=== PATIENT | female | born 1940 | race Caucasian/White ===

== ENCOUNTER 2019-01-25 18:22 | Inpatient (IN) | payer OTHER ==
[~2019-01-25] VITALS: Ht 154.9 cm; Wt 97.1 kg
--- NOTE | ~2019-01-25 | HC ---
[facility] [place] [address] CONSULTATION Name: JOYCE MCKEON Room #: 214-P ADM IN M.R.#: [id number] Admission: 01/25/19 ������������������ Attend Phys: Angélica Weiss MD Discharge: ������������������ Date of : 40 Report #: [id number] THIS REPORT FOR: //name// CC: Angélica Burris DATE OF SERVICE: 01/28/2019 HISTORY OF PRESENT ILLNESS: The patient is a 78-year-old white female who had a fall, was unable to get up. She ended up scooting on the floor. She was down for an undetermined period of time, was brought to and noted to have rhabdomyolysis, acute renal insufficiency superimposed on chronic kidney disease and was quite confused. She was transferred to [facility]. She has been followed by Cardiology with noted elevated troponin. She was noted to have a left bundle-branch block. She had the rhabdomyolysis and was given IV fluids with Nephrology involved. She did have initial considerable confusion and was noted to be a poor historian. Clinically, felt to have some delirium with a toxic metabolic encephalopathy that appears to be improving. Creatinine was 3.3 and is now 2.3. I am uncertain what her baseline is. We are seeing her in Rehabilitation Medicine consultation. PAST MEDICAL HISTORY: Includes diabetes mellitus, hypothyroidism, hyperlipidemia, hypertension, exogenous obesity. PAST SURGICAL HISTORY: Includes hysterectomy. ALLERGIES: AMOXICILLIN, UNKNOWN REACTION. MEDICATIONS: Please see the full medication listing. This includes vitamins, herbals, and supplements per report. SOCIAL HISTORY: Lives in a house by herself with some pets. Four steps in with a rail. She did not utilize gait aids except for just recently started using a walker. She notes 3 serious falls since June. She indicates that the main issue after the falls that she is unable to get up. There is a brother who lives in the area as well as a nephew. REVIEW OF SYSTEMS: Did not offer any current complaints of chest pain, shortness of breath or abdominal discomfort. She has some diffuse muscular extremity pain complaints. PHYSICAL EXAMINATION: GENERAL: She is a 78-year-old, overweight, white female, in no obvious distress. She is 5 feet inch, 209 pounds. NEUROLOGIC: Facies are symmetric. She will follow basic [address] [address] CONSULTATION Name: JOYCE MCKEON Room #: [address] [place] [address] IN M.R.#: [id number] Admission: 01/25/19 ������������������ Attend Phys: Angélica Weiss MD Discharge: ������������������ Date of : 40 Report #: [id number] Appears to have decreased insight into her deficits. EXTREMITIES: Functional range of motion of the upper extremity strength is grade 3+ to 4-/5. Lower extremities, no focal calf swelling. Functional range of motion with strength grade 3+/5. She was min assist to mod assist with sit to stand. She has only been able to do some limited standing. Max assist, lower body dressing. ASSESSMENT: A 78-year-old white female with the following problem list: 1. Initial confusion/metabolic encephalopathy, gradually improving. 2. Gait instability with multiple falls. 3. Rhabdomyolysis. 4. Acute renal insufficiency superimposed on chronic kidney disease. 5. Elevated troponin. 6. Cardiomyopathy. 7. Left bundle-branch block. 8. Diabetes mellitus. PLAN: The patient is a candidate for an acute [address] [place] [address] inpatient rehabilitation stay. Can plan on transfer when medically ready. Discussion with the patient and her brother who appears amenable. We will be glad to follow along with you. ��������������������������������������������� ���������������������������������������� By: ��������������������������������������������� 1300 0302 Duarte Salcedo MD /PMT
[2019-01-25 18:15] VITALS: BP 139/66
--- NOTE | 2019-01-25 18:50 | NUR ---
REPORT FROM FRIEDA ROY, IN [place]. PATIENT ARRIVES 1814 BY CART VIA EMS. VSS. SHE REPORTS BUMPY RIDE; NO OTHER COMPLAINTS. WILL REPORT TO ONCOMING RN.
[2019-01-25 19:57] VITALS: BP 154/53
[2019-01-25] MEDS ORDERED: ASPIR 8181 MG PO (22:03)
[2019-01-25] MEDS ORDERED: BENAZEPRIL HCL20 MG PO (22:04)
[2019-01-25] MEDS ORDERED: LIPITOR40 MG PO (22:04)
[2019-01-25] MEDS ORDERED: COREG25 MG PO (22:06)
[2019-01-25] MEDS ORDERED: IRON325 PO (22:06)
[2019-01-25] MEDS ORDERED: LASIX 20 MG TAB20 MG PO (22:07)
[2019-01-25] MEDS ORDERED: HYDRALAZINE 2525 MG PO (22:08)
[2019-01-25] MEDS ORDERED: GABAPENTIN 100100 MG PO (22:08)
[2019-01-25] MEDS ORDERED: ZANTAC 150MG T150 MG PO (22:11)
[2019-01-25] MEDS ORDERED: SYNTHROID112 MC1 PO (22:11)
[2019-01-26 00:16] VITALS: BP 121/53
[2019-01-26] MEDS ORDERED: BACTRIM DS TAB1 EACH PO (02:54)
[2019-01-26] MEDS ORDERED: LANTUS100 UNIT/M SUBQ ×2 (02:54)
[2019-01-26] MEDS ORDERED: PREDNISONE 10 M10 MG PO (02:55)
[2019-01-26 04:13] VITALS: BP 147/57
[2019-01-26 06:18] LABS: CHOLESTEROL 116 mg/dL (<200); HDL CHOLESTEROL 27 mg/dL (>40); LDL CHOLESTEROL 50 mg/dL (<100); TC:HDL 4.3 Ratio (Not establshd); TRIGLYCERIDE 197 mg/dL (<150); VLDL 39 mg/dL (<40)
[2019-01-26 06:19] LABS: SERUM ASSESSMENT Clear
[2019-01-26 06:28] LABS: ALBUMIN 2.7 g/dL (3.4-5.0); CALCIUM 10.6 mg/dL (8.5-10.1); CREATININE 3.3 mg/dL (0.6-1.0); MAGNESIUM 2.3 mg/dL (1.8-2.4); TOTAL BILIRUBIN 0.4 mg/dL (<0.1-1.0); TOTAL PROTEIN 5.3 g/dL (6.4-8.2)
[2019-01-26 07:10] LABS: HEMATOCRIT 29.6 % (37.0-47.0); HEMOGLOBIN 9.9 gm/dL (12.0-15.0); MCH 30.9 pg (26.0-34.0); MCHC 33.5 g/dL (28.0-37.0); MCV 92.2 fL (80.0-100.0); RBC 3.21 mil/uL (4.20-5.00); RDW 14.8 % (10.5-14.5); WBC 11.4 thou/uL (4.0-11.0)
--- NOTE | 2019-01-26 08:23 | NUR ---
RECEIVED PT'S CARE AT 1900; PT. ON BED; RELATIVES AT THE BED SIDE; REQUESTED TO EAT SOMETHING & DRINK; NO ORDERS; DURING ASSESSMENT PT, ALERT TO PERSON; FORGETFUL; POOR HISTORIAN DURING ADMISSION ASSESSMENT; ST. HAVING PAIN OVER LEGS 05/16; REFUSED PRN PAIN MEDICATION; ST. "I DO NOT TAKE PAIN MEDICATIONS"; EMPLOYEE WELFARE MANAGER CALLED TO RECEIVE DIET ORDERS; ORDER RECEIVED; PT. ABLE TO EAT & DRINK; PT. NOT ABLE TO VOID; BLADDER SCANNER; 322 ML; EMPLOYEE WELFARE MANAGER NOTIFIED; ORDERS RECEIVED; CATH PLACE; 350 ML OUT; PT. ABLE TO REST THROUGH THE NIGHT; ASSESSMENT CHARGED; FOLLOWING POC; PASSED ON REPORT TO FRIEDA WATERS.
--- NOTE | 2019-01-26 09:01 | H ---
[facility] [place] [address] HISTORY AND PHYSICAL Name: JOYCE MCKEON Room #: 214-P ADM IN M.R.#: [id number] Admission: 01/25/19 ������������������ Attend Phys: Ubaldo Morales Discharge: ������������������ Date of : 40 Report #: [id number] THIS REPORT FOR: //name// CC: Ubaldo Burris DATE OF SERVICE: 01/25/2019 ATTENDING PHYSICIAN: Ubaldo Morales MD PRIMARY CARE PHYSICIAN: Dr. Kyree Causey. CHIEF COMPLAINT: Acute kidney injury and fall. HISTORY OF PRESENT ILLNESS: The patient is a 78-year-old female who lives at home alone. Apparently, she had a fall yesterday morning around 8:30 and was unable to get back up. She felt very weak and unsteady and was only able to scoot around on the floor until she was able to get help. She was taken to [facility] and presented there complaining of pain in her hips and legs. She does have some chronic neuropathy pain in her legs. She denies losing any consciousness, but did state that she hit the back of her head. She also reports other recent falls. Her medication list shows that she has been on Bactrim for the last 2 days. Family reported that this was for a recent UTI. She has also been on a prednisone taper for unknown reasons. The patient has been confused and her baseline is unknown as her family is not present at this time. She was transferred to [facility] due to elevated creatinine and troponin. She is denying any chest pain, palpitations or shortness of breath. She denies any history of heart disease or having any stents in her heart, but her family members report that she has seen Dr. Mendenhall with Cardiology. The patient is an extremely poor historian and has never been at [facility] in the past. Her previous creatinine is unknown, but she denies any history of chronic kidney disease. Her creatinine at [facility] was 3.14. They were unable to get any IV access as she has not had any IV fluids. She is a diabetic. Although she is unable to state her exact insulin doses, her family members mentioned that they were not sure if she has been taking her medications correctly. PAST MEDICAL HISTORY: Diabetes, hypothyroidism, hyperlipidemia, hypertension, possibly coronary artery disease. PAST SURGICAL HISTORY: Hysterectomy, otherwise unknown. ALLERGIES: AMOXICILLIN, unknown reaction. HOME MEDICATIONS: Bactrim one tab b.i.d. that was just started 2 days ago, iron 325 mg daily, atorvastatin 40 mg at bedtime, hydralazine [address]i.d[address] [place] [id number] HISTORY AND PHYSICAL Name: JOYCE MCKEON Room #: 214-P ADM IN M.R.#: [id number] Admission: 01/25/19 ������������������ Attend Phys: Ubaldo Morales Discharge: ������������������ Date of : 40 Report #: [id number] carvedilol 25 mg p.o. b.i.d., benazepril 20 mg p.o. daily, aspirin 81 mg p.o. daily, gabapentin 100 mg p.o. daily, Lasix 20 mg p.o. daily, ranitidine 150 mg p.o. daily, prednisone taper, Lantus insulin 20 units in the morning and 10 units at night, and levothyroxine 112 mcg daily. SOCIAL HISTORY: The patient lives at home alone. Does have some pets. She denies any tobacco, alcohol or drug use. FAMILY HISTORY: Unobtainable due to altered mental status. PHYSICAL EXAMINATION: GENERAL: The patient is an alert, but confused female, in no acute distress. VITAL SIGNS: Temperature is 36.8, heart rate 70, respirations 18, blood pressure 139/66, oxygen is 99% on room air. HEENT: PERRLA. Sclerae nonicteric. Oral mucosa is pink and dry. NECK: Supple. There is no JVD noted. CARDIAC: Normal S1, S2 with no murmurs, rubs or gallops. RESPIRATORY: Breath sounds are clear bilaterally. No wheezing or rhonchi. She is somewhat diminished in the bases. ABDOMEN: Round and obese. She does have some mild right upper quadrant tenderness and left lower quadrant tenderness. Bowel sounds are positive. VASCULAR: 2+ bilateral lower extremity edema, pedal pulses are 2+. NEUROLOGIC: The patient is alert, but confused. She had trouble stating her date and stated it was 08/08/02, when she is trying to correct herself, she said 10/06/00. She will follow commands. She did have slight tremors of bilateral upper extremities with [id number] testing. She had 4/5 muscle strength in bilateral lower extremities and was barely able to lift her legs up off the bed, but it was difficult to tell if this was related to pain in her knees. She was somewhat sleepy, but did arouse easily and remained alert and attempted to answer questions, although she is a very poor historian. SKIN: She does have some bruising noted on bilateral knees and forearms. There are skin tears in bilateral elbows. LABORATORIES AND DIAGNOSTICS: Blood work from [facility] showed a WBC of 15.8, hemoglobin 11.0, platelets 90. Sodium 136, potassium 3.8, BUN 53, creatinine 3.14, glucose 162. Magnesium 1.6. AST 1245, ALT 147, calcium is 11.7. CPK is 12,975. Troponin is 2.34. BNP is 1250. UA showed large amount of blood. Bilirubin is normal. Chest x-ray showed no acute findings and EKG showed sinus rhythm with some PVCs and a left bundle-branch block, I did not have any old EKGs for comparison. ASSESSMENT AND PLAN: 1. Acute kidney injury. The patient denies any history of chronic kidney disease or ever having to see a consulting senior practice director. We will check a renal ultrasound in the morning and continue with IV fluids, this was possibly due to recent Bactrim use. We will discontinue Bactrim and hold Lasix and ANH inhibitor. [facility] [address] [place] [address] HISTORY AND PHYSICAL Name: JOYCE MCKEON Room #: 214-P ADM IN M.R.#: [id number] Admission: 01/25/19 ������������������ Attend Phys: Ubaldo Morales Discharge: ������������������ Date of : 40 Report #: [id number] Consult Nephrology. She also has a significantly elevated CPK level, which may be affecting the kidneys as well. 2. Rhabdomyolysis, likely due to recent falls. We will continue with IV fluids and repeat CPK in the morning. Hold statin therapy. 3. Non-ST elevation myocardial infarction. The patient is denying any chest pain. EKG shows sinus rhythm with a left bundle-branch block, but it is unclear if this is new or old. We will repeat a troponin in the morning and consult Cardiology, check an echo in the morning. 4. Generalized lower extremity weakness and falls. It is difficult to tell if her weakness is related to her knee pain. No x-rays of the extremities were done. We will have PT and OT evaluate. 5. Diabetes type 2. Blood sugar is stable. Continue Lantus and add sliding scale insulin. Follow Accu-Cheks. Check a hemoglobin A1c as the family is concerned about noncompliance. 6. Hypothyroidism. Check TSH level. Continue Synthroid. 7. Hypomagnesemia. Replace and repeat labs in the morning. 8. Transaminitis. No prior labs for comparison. We will check an abdominal ultrasound in the morning since she is having some abdominal tenderness and check a hepatitis panel. Hold statin therapy. 9. Hypercalcemia, possibly due to dehydration. We will hydrate and repeat labs. If the hypercalcemia persists, we may need to further evaluate for malignancy. 10. Hypertension. Blood pressure is stable. Resume Coreg as at home. Continue with Coreg and hydralazine as at home. We do need to hold Lasix and AHN inhibitor due to elevated creatinine. 11. Left bundle-branch block. We do not know if this is new. Since Cardiology is consulted, we will try to obtain access to prior EKGs. 12. Altered mental status. Baseline mentation is not clear. She did her recent fall and hit her head. She is an extremely poor historian. Since her platelets are on the low side, we will need to check a stat CT of the head to rule out any acute findings. 13. Deep venous thrombosis prophylaxis. Start heparin 5000 units subQ t.i.d. if CT of the head is negative. We will continue to follow the patient closely throughout the hospitalization and make changes based on clinical status. ��������������������������������������������� <ELECTRONICALLY SIGNED> ���������������������������������������� By: ODIN Gallagher ��������������������������������������������� 01/26/1901 0719 0823 ODIN Gallagher /nt
[2019-01-26 09:25] VITALS: BP 153/59
--- NOTE | 2019-01-26 11:42 | NUR ---
ASSUMED CARE AT 0700, SHIFT ASSESSMENT DONE, VSS. MORNING MEDS ADMINISTERED. REPORTED PAIN TO LOWER BACK, PRN PAIN MED GIVEN. HAS BEEN CONSTIPATED, BUT DID NOT WANT PRN MIRALAX, INDICATED THAT SHE HAS DIARRHEA. QUICK IN PLACE, PRODUCING SOME URINE. WILL CONTINUE TO ASSESS AND ASSIST WITH ADLs NEEDED.
[2019-01-26 12:44] VITALS: BP 155/63
[2019-01-26 16:00] VITALS: BP 141/64
--- NOTE | 2019-01-26 16:25 | 2DMMODE ---
[facility] [address] [place] [address] 2 D/M-MODE ECHOCARDIOGRAM Name: JOYCE MCKEON Room #: 214-P ADM IN M.R.#: [id number] ������������� Admission: 01/25/19 ������������� Attend Phys: Ubaldo Cornell Discharge: ��� ������������� ��� Date of : 40 Date of Service: 01/26/19 1625 �� Report #: [id number] �������� ��������������������������������������������[id number] THIS REPORT FOR: //name// APPROVED REPORT Study performed: 01/26/2019 12:16:51 EXAM: Comprehensive 2D, Doppler, and color-flow Echocardiogram Patient Location: In-Patient Room #: 214 Status: routine BSA: 1.94 HR: 58 bpm BP: 153/59 mmHg Other Information Study Quality: Adequate Risk Factors: Cardiac Risk Factors: Diabetes (insulin) Indications Chest Pain 2D Dimensions IVSd: 13.38 (7-11mm) LVOT Diam: 21.02 (18-24mm) LVDd: 60.41 mm PWd: 12.62 (7-11mm) Ascending Ao: 32.61 (22-36mm) LVDs: 47.18 (25-40mm) Left Atrium: 39.97 (27-40mm) Aortic Root: 27.06 mm Volumes Left Atrial Volume (Systole) Single Plane 4CH: 70.33 mL Single Plane 2CH: 120.44 mL Aortic Valve AoV Peak Marcell.: 1.71 m/s AO Peak Gr.: 11.86 mmHg LVOT Max P.84 mmHg LVOT Max V: 0.97 m/s GABE Vmax: 1.98 cm2 Mitral Valve E/A Ratio: 0.5 MV Decel. Time: 239.13 ms [facility] [address] [address] 2 D/M-MODE ECHOCARDIOGRAM Name: JOYCE MCKEON Room #: 214-P [facility] IN [facility].#: [id number] ������������� Admission: 01/25/19 ������������� Attend Phys: Ubaldo Cornell Discharge: ��� ������������� ��� Date of : 40 Date of Service: 01/26/19 1625 �� Report #: [id number] �������� ��������������������������������������������[id number] MV E Max Marcell.: 0.64 m/s MV A Marcell.: 1.27 m/s MV Max Marcell.: 5.92 m/s MV Mean Marcell.: 4.28 m/s MR Radius: 1.12 cm MV PHT: 69.35 ms MR Als. Marcell: 0.68 m/s MR Flow: 535.40 mL/s Pulmonary Valve PV Peak Marcell.: 1.06 m/s PV Peak Gr.: 4.49 mmHg Pulmonary Vein P Vein S: 0.77 m/s P Vein A: 0.30 m/s P Vein D: 0.32 m/s P Vein A Dur.: 183.4 msec P Vein S/D Ratio: 2.41 Tricuspid Valve TR Peak Marcell.: 3.03 m/s TR Peak Gr.: 36.77 mmHg Left Ventricle Left ventricle is mildly dilated. There is mild global hypokinesis of the left ventricle. Mild to moderate concentric left ventricular hypertrophy. Left ventricular systolic function is borderline. LVEF is 40-45%. Grade I - abnormal relaxation pattern. Right Ventricle The right ventricle is normal size. There is normal right ventricular wall thickness. The right ventricular systolic function is normal. Atria Left atrium is mildly dilated. The right atrium size is normal. Aortic Valve Aortic valve is thickened but has adequate excursion. Trace aortic regurgitation. There is no aortic valvular stenosis. Mitral Valve The mitral valve is thickened but opens well. Moderate mitral regurgitation. No evidence of mitral valve stenosis. There is no evidence of mitral valve prolapse. Tricuspid Valve The tricuspid valve is normal in structure. There is no tricuspid [address] [address] 2 D/M-MODE ECHOCARDIOGRAM Name: JOYCE MCKEON Room #: 214-P [facility] IN ..#: [id number] ������������� Admission: 01/25/19 ������������� Attend Phys: Ubaldo Cornell Discharge: ��� ������������� ��� Date of : 40 Date of Service: 01/26/19 1625 �� Report #: [id number] �������� ��������������������������������������������[id number] valve stenosis. Mild tricuspid regurgitation. Pulmonic Valve The pulmonary valve is normal in structure. Trace pulmonic regurgitation. Great Vessels The aortic root is normal in size. IVC is normal in size and collapses >50% with inspiration. Pericardium There is no pericardial effusion. There is no pleural effusion. Critical Notification Critical Value: No <Conclusion> Left ventricle is mildly dilated. LVEF is 40-45%. There is mild global hypokinesis of the left ventricle. Left atrium is mildly dilated. Aortic valve is thickened but has adequate excursion. Trace aortic regurgitation. The mitral valve is thickened but opens well. Moderate mitral regurgitation. The tricuspid valve is normal in structure. Mild tricuspid regurgitation. The pulmonary valve is normal in structure. Trace pulmonic regurgitation. There is no pericardial effusion. ��������������������������������������������� <ELECTRONICALLY SIGNED> ���������������������������������������� By: Hernan Waterman MD ��������������������������������������������� 01/26/19 1625 1625 1625 Hernan Waterman MD /INF
[2019-01-26 20:03] LABS: URINE BILIRUBIN NEGATIVE (Negative); URINE BLOOD 2+ (Negative); URINE CLARITY CLEAR; URINE COLOR YELLOW; URINE GLUCOSE-RANDOM* NEGATIVE (Negative); URINE KETONES NEGATIVE (Negative); URINE LEUKOCYTES-REFLEX TRACE (Negative); URINE NITRITE-REFLEX NEGATIVE (Negative); URINE PROTEIN (DIPSTICK) TRACE (Negative); URINE UROBILINOGEN 0.2 E.U./dl (0.2-1.0)
[2019-01-26 20:06] VITALS: BP 141/58
[2019-01-26 20:11] LABS: BACTERIA-REFLEX 1-9 Few /HPF (None Seen); CASTS None Seen /LPF (None Seen); CRYSTALS None Seen /LPF (None Seen); SQUAMOUS 0-3 Few /LPF (0-3); URINE RBC 0-2 Rare /HPF (0-2); URINE WBC-REFLEX 0-5 Rare /HPF (0-5)
[2019-01-27 01:05] LABS: GLYCOHEMOGLOBIN (HGB A1C) 6.4 % (4.8-5.6)
[2019-01-27 04:40] VITALS: BP 159/74
--- NOTE | 2019-01-27 05:10 | NUR ---
ASSUMED PT CARE AT 1900 WITH NO SIGN OF DISTRESS NOTED. PT IS ALERT BUT CONFUSED, PT IS SITTING ON THE CHAIR. NO FAMILY AT BEDSIDE. PT IS STABLE. ASSESSMENT COMPLETED AND CHARTED. SCHEDULED MEDS ADMINISTERED TO PT, PT IS TRANSFERRED BACK FROM CHAIR TO BED. FALL PRECAUTIONS ARE IN PLACE. PT IS STABLE, DENIES ANY NEEDS AT THIS TIME, PAIN MED ADMINISTERED REQUESTED BY PATIENT
[2019-01-27 06:26] LABS: HEMATOCRIT 26.5 % (37.0-47.0); HEMOGLOBIN 8.9 gm/dL (12.0-15.0); MCH 31.1 pg (26.0-34.0); MCHC 33.6 g/dL (28.0-37.0); MCV 92.8 fL (80.0-100.0); RBC 2.85 mil/uL (4.20-5.00); RDW 15.1 % (10.5-14.5); WBC 8.1 thou/uL (4.0-11.0)
[2019-01-27 06:41] LABS: ALBUMIN 2.6 g/dL (3.4-5.0); CALCIUM 9.2 mg/dL (8.5-10.1); CREATININE 2.7 mg/dL (0.6-1.0); POTASSIUM 3.9 mmol/L (3.5-5.1); TOTAL BILIRUBIN 0.4 mg/dL (<0.1-1.0); TOTAL PROTEIN 5.2 g/dL (6.4-8.2)
[2019-01-27 08:34] VITALS: BP 179/71
[2019-01-27 09:05] LABS: HAV IgM AB (ANTI-HAV IgM) Negative (Negative); HEPATITIS B SURFACE AG Negative (Negative); HEPATITIS C VIRUS AB <0.1 (0.0-0.9)
--- NOTE | 2019-01-27 14:17 | NUR ---
ASSUMED CARE AT 0700, SHIFT ASSESSMENT DONE, MEDS GIVEN, BP ELEVATED THIS AM, DR AWARE, IV FLUID RATE HAS BEEN REDUCED. QUICK IN PLACE, PRODUICNG LIGHT YELLOW COLORED URINE, AMPLE IN AMOUNT. REPORTED RIGHT HIP PAIN, PRN PAIN MED GIVEN, X-RAY OF HIP WAS NEGATIVE FOR FRACTURE. SITTING UP IN THE CHAIR THIS AFTERNOON, ACHS, COEVERGE PER eMAR. WILL CONTINUE TO ASSESS AND ASSIST WITH ADLs NEEDED.
[2019-01-27 16:00] VITALS: BP 177/75
[2019-01-27 18:01] VITALS: BP 178/74
--- NOTE | 2019-01-27 18:27 | NUR ---
BP ELEVATED THROUGHOUT THE DAY, CARVEDILOL GIVEN AT 1645, BP RECHECKED AT 1800, STILL AT 178/81, DR JOHNSON INFORMED, ORDER RECEIVED FOR NORVASC 10 MG AND ADMINISTERED.
[2019-01-27 20:05] VITALS: BP 165/64
[2019-01-28 02:59] LABS: HEMATOCRIT 24.6 % (37.0-47.0); HEMOGLOBIN 8.3 gm/dL (12.0-15.0); MCH 31.5 pg (26.0-34.0); MCHC 33.9 g/dL (28.0-37.0); MCV 92.7 fL (80.0-100.0); RBC 2.65 mil/uL (4.20-5.00); RDW 14.9 % (10.5-14.5)
[2019-01-28 03:15] LABS: ALBUMIN 2.5 g/dL (3.4-5.0); CALCIUM 8.8 mg/dL (8.5-10.1); CREATININE 2.3 mg/dL (0.6-1.0); POTASSIUM 4.5 mmol/L (3.5-5.1); TOTAL BILIRUBIN 0.4 mg/dL (<0.1-1.0); TOTAL PROTEIN 4.9 g/dL (6.4-8.2)
[2019-01-28 04:09] VITALS: BP 169/69
--- NOTE | 2019-01-28 04:54 | NUR ---
ASSUMED PT CARE AT 1900. PT IS ALERT BUT CONFUSED. NO SIGN OF DISTRESS NOTED IN PT. ASSESSMENT CHARTED AND COMPLETED. VITAL SIGNS STABLE. SCHEDULED MEDS ADMINISTERED TO PT. PT IS LAYING IN BED COMFORTABLY. QUICK IS STILL INSERTED. DENIES ANY FURTHER NEEDS AT THIS TIME. CONTINUE TO MONITOR PATIENT.
[2019-01-28 07:44] VITALS: BP 173/66
--- NOTE | 2019-01-28 08:04 | NUR ---
assumed care of pt at 2330, pt sleeping no c/o this am, pt transfer up to chair and iv noticed leaking fluids put on hold, sbp remains elevated, sb per monitor, report given to next shift to con't with pts ppoc.
--- NOTE | 2019-01-28 09:04 | EKG ---
[address] [address] ELECTROCARDIOGRAM REPORT Name: EDEN MCKEONNDA Room #: 214-P ADM IN M.R.#: [id number] ������������������ Admission: 01/25/19 ������������������ Attend Phys: Angélica Weiss MD Discharge: ������������������ Date of : 40 Report #: [id number] ����������������������������������������������������������������� [id number] THIS REPORT FOR: //name// [facility] Test Date: 2019-01-26 Test Time: 07:17:30 Pat Name: JOYCE MCKEON Department: Room: 214 P Gender: F Financial Service Rep: KARL : 1940 Requested By: Lindy Valenzuela Order Number: [id number] MD: Anirudh Nash Measurements Intervals Cammal Rate: 57 P: 37 RI: 178 QRS: -13 QRSD: 146 T: 176 QT: 465 QTc: 453 Interpretive Statements Sinus rhythm with occasional PVC's Left bundle branch block No previous ECG available for comparison Electronically Signed On 01-28-2019 9:04:35 CDT by Anirudh Nash [email or web address] ��������������������������������������������� <ELECTRONICALLY SIGNED> ���������������������������������������� By: Anirudh Nash MD, [facility] ��������������������������������������������� [birth year]04 6 6 Anirudh Nash MD, [facility] /EPI
[2019-01-28 11:13] LABS: % SATURATION 51 % (20-39); IRON 77 ug/dL (50-170); TIBC 152 ug/dL (250-450)
[2019-01-28 11:40] VITALS: BP 99/57
--- NOTE | 2019-01-28 14:52 | NUR ---
ASSESSMENT CHARTED. PT ALERT AND ORIENTED. DENIED HAVING PAIN OR DISCOMFORT. SB ON TELE. CARDIOLOGY AWARE. SCHEDULED BP MED GIVEN ORDERED. UP IN THE CHAIR THIS SHIFT. NO CONCERNS AT THIS TIME. WILL CONTINUE TO MONITOR.
--- NOTE | 2019-01-28 15:02 | NUR ---
PATIENT SEEN BY DR. STEVENS THIS DATE. [facility] IS A GOOD CANDIDATE FOR ACUTE REHAB AND MEETS CRITERIA AT THIS TIME. SEGMENTAL PAVING SUPERVISOR INFORMED. WILL CONTINUE TO FOLLOW.
[2019-01-28 15:46] VITALS: BP 143/76
--- NOTE | 2019-01-28 15:51 | NUR ---
met with patient who lives in independent home in [place]. All needs on one level. Patient reports fall at home last week and since that time she is using a roller walker at home. CM to give her resources for [facility]. Patient evaled for 5N possible candidate. She plans to consider if short stay. She may also consider care. She reports she did better with therapy this afternoon. Her brother lives nearby in [place]. She plans to move to [place] to be with her brother and live in his home. She reports reluctant for rehab as she has standard poodle and 4 cats at home. [email or web address] following.
[2019-01-28 19:59] VITALS: BP 140/50
[2019-01-29 04:39] VITALS: BP 156/54
[2019-01-29 05:09] LABS: HEMATOCRIT 25.3 % (37.0-47.0); HEMOGLOBIN 8.5 gm/dL (12.0-15.0); MCHC 33.5 g/dL (28.0-37.0); MCV 92.6 fL (80.0-100.0); RBC 2.74 mil/uL (4.20-5.00); RDW 14.9 % (10.5-14.5); WBC 6.8 thou/uL (4.0-11.0)
--- NOTE | 2019-01-29 05:31 | NUR ---
ASSUMED PT CARE AT 1900 WITH NO SIGN OF DISTRESS NOTED IN PT. PT IS STABLE. ASSESSMENT COMPLETED AND CHARTED. SCHEDULED MEDS ADMINISTERED. PT TOLERATED PO INTAKE. VITAL SIGNS STABLE, DENIES ANY NEED AT THIS TIME.
[2019-01-29 05:33] LABS: ALBUMIN 2.7 g/dL (3.4-5.0); CALCIUM 9.2 mg/dL (8.5-10.1); PHOSPHORUS 1.7 mg/dL (2.5-4.9); POTASSIUM 4.7 mmol/L (3.5-5.1); TROPONIN-I 0.28 ng/mL (<0.06)
[2019-01-29 07:36] VITALS: BP 169/60
[2019-01-29 11:59] VITALS: BP 129/68
--- NOTE | 2019-01-29 13:55 | NUR ---
Sp with patient encouraging her for post acute care. Brother arrived and interest in [facility] swing bed unit. Left message with Whitney liason/admissions with [facility]. Brother reports can transport patient.
--- NOTE | 2019-01-29 15:36 | NUR ---
FAXED REFERRAL TO [facility] BED UNIT LEFT MSG WITH JACINTO IN ADM TO REVIEW REFERRAL AND ANTICIPATE DC SOON. DCP TO FOLLOW.
[2019-01-29 15:57] VITALS: BP 149/78
--- NOTE | 2019-01-29 18:25 | NUR ---
VSS REMAINS SB TO NSR WITH HR 45-60, AVERAGE 50'S. LUNGS DIMINISHED. O2 SAT RA IS 98%.QUICK REMOVED TODAY, VOIDING QS. PT UP TO CHAIR AND BSC WITH MOD ASSIST, STEADY ON FEET WITH MAX ASSIST. WILL CONTINUE TO MONITER AND CARE FOR PT PER PLAN OF CARE
[2019-01-29 19:44] VITALS: BP 158/58
[2019-01-30 03:51] LABS: ALBUMIN 2.8 g/dL (3.4-5.0); CALCIUM 8.7 mg/dL (8.5-10.1); PHOSPHORUS 2.8 mg/dL (2.5-4.9); POTASSIUM 5.1 mmol/L (3.5-5.1)
[2019-01-30 04:00] VITALS: BP 171/58
--- NOTE | 2019-01-30 05:37 | NUR ---
ASSUMED PT CARE AT 1900 WITH NO SIGN OF DISTRESS NOTED IN PT. PT IS ALERT AND ORIENTED AND DENIES ANY NEEDS AT THIS TIME. SCHEDULED MEDS ADMINISTERED TO PT NEEDED. ASSESSMENT COMPLETED AND CHARTED. DENIES ANY FURTHER NEEDS AT THIS TIME.
[2019-01-30 07:55] VITALS: BP 148/67
--- NOTE | 2019-01-30 10:37 | NUR ---
JACINTO FROM [facility] RETURNED CALL THIS AM THAT UNIT IT FULL. SP WITH BROTHER AND PATIENT AND PLAN REFERRAL TO [facility].
[2019-01-30] MEDS ORDERED: AMLODIPINE BESYL5 M1 PO (11:53)
[2019-01-30] MEDS ORDERED: NOVOLOG100 UNIT/1 SUBQ (11:53)
[2019-01-30] MEDS ORDERED: LASIX 40 MG TAB40 M1 PO (11:53)
[2019-01-30] MEDS ORDERED: HYDROCODON-ACE1 EAC7 PO (11:53)
[2019-01-30] MEDS ORDERED: MIRALAX17 GM PO (11:53)
[2019-01-30 12:04] VITALS: BP 153/45
[2019-01-30 13:26] LABS: PROT/CREAT RATIO 0.3; URINE PROTEIN-RANDOM* < 6.0 mg/dL (<11.9)
--- NOTE | 2019-01-30 15:16 | NUR ---
AAOX4. CALM, COOPERATIVE. STILL BEING DIURESED; BSC WITH ASSIST. RIGHT ARM REDRESSED. 2+ PEDAL EDEMA NOTED, LEGS ELEVATED. CM LOOKING FOR SWING BED IN [facility]. FREQUENT CHECKS; WILL CONTINUE TO MONITOR.
--- NOTE | 2019-01-30 15:56 | NUR ---
FAXED REFERRAL TO [facility] LEFT MSG WITH CASSIE IN ADM TO REVIEW. DCP TO FOLLOW.
--- NOTE | 2019-01-30 16:25 | NUR ---
Referral to [facility] swing bed unit. Left message with admissions. They did not return call. Sp with hammer shop supervisor who reports they have left for the day. Plan to fax dc orders for review. Updated patient and brother likely in am dc.
--- NOTE | 2019-01-30 16:54 | NUR ---
FAXED REFERRAL TO [facility] SWING BED UNIT SPOKE WITH KIKA IN ADM SHE RECEIVED REFERRAL AND WILL HAVE ANSWER IN THE AM IF THEY CAN ACCEPT. FAXED REFERRAL TO [facility] FOR SWING BED DCP WILL F/U WITH FACILITY IN THE MORNING TO SEE IF THEY CAN ACCEPT. DCP TO FOLLOW.
[2019-01-30 17:23] VITALS: BP 143/55
[2019-01-30 20:36] VITALS: BP 114/56
[2019-01-31 03:49] VITALS: BP 144/56
[2019-01-31 04:11] LABS: ALBUMIN 2.8 g/dL (3.4-5.0); PHOSPHORUS 2.2 mg/dL (2.5-4.9); POTASSIUM 4.7 mmol/L (3.5-5.1)
--- NOTE | 2019-01-31 04:29 | NUR ---
ASSESSMENT DOCUMENTED.PT BEEN RESTING IN NO ACUTE DISTRESS.A/OX4.VSS.UP WITH STANDBY ASSIST TO BR.VOIDING ADEQUATELY.NSR ON MONITOR.PT DENIES ANY CONCERNS AT THIS TIME.PT TO DISCHARGE TO SNF ONCE A BED IS AVAILABLE.QUALITY ASSURANCE MANAGER FOLLOWING.
[2019-01-31 07:05] VITALS: BP 159/46
[2019-01-31 08:16] VITALS: BP 144/56
--- NOTE | 2019-01-31 11:57 | NUR ---
Pt accepted for admission to [facility] swing bed today. Dr. Callahna is agreeable to be the admitting physician. Pt's brother here to transport her at 1300 via family car. Dc media planner to fax final dc orders/summary. Nursing to call report. Chart copy ready to be sent with the pt. Pt and brother agreeable to the dc plan. All parties updated. Case closed.
--- NOTE | 2019-01-31 13:17 | NUR ---
PATIENT ASSESSMENT CHARTED, VSS, AOXA4, BRUISING ON RIGHT ARM, DRESSING CHANGED, PATIENT DISCHARGED TO [facility] SWING BED, TRANSPORTED BY FAMILY. DISCHARGE INSTRUCTIONS AND PACKET GIVEN TO FAMILY, STATED UNDERSTANDING.
--- NOTE | 2019-02-01 12:03 | HC ---
[facility] [place] [address] CONSULTATION Name: JOYCE MCKEON Room #: 214-P [facility] IN M.R.#: [id number] Admission: 01/25/19 ������������������ Attend Phys: Angélica Weiss MD Discharge: 01/31/19 ������������������ Date of : 40 Report #: [id number] THIS REPORT FOR: //name// CC: Angélica Burris DATE OF SERVICE: 01/28/2019 NEPHROLOGY CONSULTATION ATTENDING PHYSICIAN: Ubaldo Morales MD. REASON FOR CONSULTATION: Acute kidney injury. HISTORY OF PRESENT ILLNESS: The patient with longstanding diabetes and hypertension becoming progressively debilitated with peripheral neuropathy and apparent mental status issues, has had falls and been found down and was on the floor for up to 20 hours. She was taken to the hospital and found to have an elevated CPK, creatinine level that was initially up to 3.3, now down to 2.3 with IV fluids. She also had elevated transaminases as well as the CPK and evidence of hypoalbuminemia as well as anemia. PAST MEDICAL HISTORY: Hypertension, diabetes, previous carpal tunnel surgery, previous ovary removal. MEDICATIONS: At the time of admission include insulin, Bactrim for UTI double strength twice daily, prednisone 10 mg daily for unknown indication, aspirin 81 mg daily, Lipitor 40 mg daily, Lotensin 20 mg daily, carvedilol 25 mg b.i.d., iron, furosemide 20 mg daily, Neurontin 100 mg daily, hydralazine 25 mg b.i.d., Synthroid 112 mcg daily and ranitidine. SOCIAL HISTORY: Remote smoking history; no alcohol; lives by herself. REVIEW OF SYSTEMS: GENERAL: She has not been well. SKIN: No lesions there. SKELETAL: She is rather obese, but has had no joint deformities. ENT: No difficulty with swallowing. ENDOCRINE: Positive for the diabetes and hypothyroidism. RESPIRATORY: Does get somewhat short winded at times. CARDIAC: No chest pain, angina or palpitations. GASTROINTESTINAL: No nausea, vomiting or diarrhea, but her appetite is down. GENITOURINARY: She has a reasonably good urinary stream, although currently has a Roberts catheter in. NEUROLOGIC: Generalized weakness. PSYCHIATRIC: Appears to have a flat affect with no definitive psychiatric [address] [address] CONSULTATION Name: JOYCE MCKEON Room #: 214-P [facility] IN M.R.#: [id number] Admission: 01/25/19 ������������������ Attend Phys: Angélica Weiss MD Discharge: 01/31/19 ������������������ Date of : 40 Report #: [id number] diagnosis or medications. PHYSICAL EXAMINATION: GENERAL: This is a somewhat chronically ill-appearing obese elderly patient seen sitting up in the chair. SKIN: Otherwise unremarkable. SKELETAL: Rather obese. HEENT: Extraocular movements are full. Vision is intact. No scleral icterus. Hearing intact. Mucous membranes are moist. Tongue, buccal mucosa benign. NECK: Supple. CHEST: Clear. HEART: Regular. ABDOMEN: Soft. EXTREMITIES: Show no edema. LABORATORY DATA: Urinalysis was benign. Anemia with hemoglobin of 8.3. CPK initially 3386, albumin at 2.5, creatinine 3.3 down to 2.3. Electrolytes were okay. ASSESSMENT: 1. Acute kidney injury, chronic, renal function is unknown. She is improving with gentle IV fluids. 2. Hypertension. Blood pressure is a bit up, but we have cut back a bit on her antihypertensives from home. 3. Diabetes mellitus with peripheral neuropathy. 4. Found down with elevated CPK. 5. Generalized weakness. DICTATION ENDS HERE ��������������������������������������������� <ELECTRONICALLY SIGNED> ���������������������������������������� By: Anthony Bañuelos MD ��������������������������������������������� 02/01/19 1203 1055 1217 Anthony Bañuelos MD /nt
== END 2019-01-31 13:26 | DRG 280 ==
LOC: 2N 18:22 → ENTRNSPT 01-31 13:03 → EDTRNSPTSTS 01-31 13:22 → 2N 01-31 13:26
PROVIDERS: Hospitalist; Internal Medicine; Internal Medicine Nephrology; Nurse Practitioner Acute Care; ADMIT Hospitalist
DX: I21.4 Non-ST elevation (NSTEMI) myocardial infarction (principal); G92 Toxic encephalopathy; N17.9 Acute kidney failure, unspecified; M62.82 Rhabdomyolysis; I42.9 Cardiomyopathy, unspecified; Z68.41 Body mass index [BMI] 40.0-44.9, adult; E11.42 Type 2 diabetes mellitus with diabetic polyneuropathy; E03.9 Hypothyroidism, unspecified; E78.5 Hyperlipidemia, unspecified; I44.7 Left bundle-branch block, unspecified; N18.9 Chronic kidney disease, unspecified; E83.42 Hypomagnesemia; E83.52 Hypercalcemia; R74.0 Nonspecific elevation of levels of transaminase and lactic acid dehydrogenase [LDH]; I12.9 Hypertensive chronic kidney disease with stage 1 through stage 4 chronic kidney disease, or unspecified chronic kidney disease; Z60.2 Problems related to living alone; R00.1 Bradycardia, unspecified; D63.1 Anemia in chronic kidney disease; E66.01 Morbid (severe) obesity due to excess calories; Z87.891 Personal history of nicotine dependence; Z88.1 Allergy status to other antibiotic agents; Z90.710 Acquired absence of both cervix and uterus; Z91.012 Allergy to eggs; Z91.013 Allergy to seafood; Z98.49 Cataract extraction status, unspecified eye; Z79.82 Long term (current) use of aspirin; Z79.899 Other long term (current) drug therapy; W18.39XA Other fall on same level, initial encounter; Y93.89 Activity, other specified; Y92.89 Other specified places as the place of occurrence of the external cause; Y99.8 Other external cause status
CPT/HCPCS: 10081

== ENCOUNTER 2019-02-18 23:38 | Inpatient (IN) | payer OTHER ==
[~2019-02-18] VITALS: Ht 154.9 cm; Wt 91.7 kg
--- NOTE | ~2019-02-18 | HC ---
[facility] [place] [address] CONSULTATION Name: JOYCE MCKEON Room #: 353-P ADM IN M.R.#: [id number] Admission: 02/18/19 ������������������ Attend Phys: Baylee Balbuena MD Discharge: ������������������ Date of : 40 Report #: [id number] THIS REPORT FOR: //name// CC: Kyree Balbuena DATE OF SERVICE: 02/19/2019 HISTORY OF PRESENT ILLNESS: The patient is a 78-year-old female previously known to me who was originally admitted from 01/25/2019 to 01/31/2019 for rhabdomyolysis, non-ST elevation myocardial infarction, acute renal insufficiency. She went to a local swing bed and then was able to go home for approximately 3-4 days. She had further problems at home, increased shortness of breath, noted to have decompensated congestive heart failure, acute renal insufficiency superimposed on chronic kidney disease, left knee degenerative arthritis. She has been readmitted to [facility] and transferred from [place]. We are seeing her in rehabilitation medicine consultation. There is also a history of repeated falls. PAST MEDICAL HISTORY: Includes diabetes mellitus, hypothyroidism, hyperlipidemia, hypertension, exogenous obesity. PAST SURGICAL HISTORY: Includes hysterectomy. ALLERGIES: AMOXICILLIN, UNKNOWN REACTION. MEDICATIONS: Please see the full medication listing. SOCIAL HISTORY: She has been living in a house by herself with some pets. Four steps in with a rail. She did not utilize gait aids except for just recently approximately within the last month or so she did start utilizing a walker after the falls. There is a brother who lives in the area as well as a nephew. REVIEW OF SYSTEMS: Did not offer any current complaints of chest pain, shortness of breath or abdominal discomfort. She does have some left lateral thigh pain. PHYSICAL EXAMINATION: GENERAL: She is a 78-year-old white female in no obvious distress. VITAL SIGNS: Last recorded temperature 97.9, pulse 57, respirations 16, blood pressure 149/52. NEUROLOGIC: The patient is alert. She is pleasant. She follows basic 1 step commands. She does have significant exogenous obesity. She is 5 feet 1 and weighs 194 pounds. EXTREMITIES: She has functional range of motion of both upper extremities. Strength is grade 4-/5. DTRs are trace to 1. Lower extremities, no focal calf [address] [address] CONSULTATION Name: JOYCE MCKEON Room #: [address] [place] [address] IN M.R.#: [id number] Admission: 02/18/19 ������������������ Attend Phys: Baylee Balbuena MD Discharge: ������������������ Date of : 40 Report #: [id number] swelling. She does have some ecchymoses left lateral thigh. No evidence of any knee swelling or synovitis or warmth. Appears to have some chronic degenerative changes. Strength of the lower extremities, probably a grade 3+ to 4-/5. She has a little more difficulty moving that left lower extremity with some pain in the left thigh. Functionally, she has been min assist with sit to stand. Gait, min assist 3 steps front-wheeled walker. ASSESSMENT: A 78-year-old white female with the following problems: 1. Gait instability with history of recent falls. 2. Decompensation congestive heart failure. 3. Acute renal insufficiency superimposed on chronic kidney disease. 4. Chronic anemia. 5. Left knee pain and thigh pain. She has left knee degenerative arthritis and also has some ecchymosis of the left lateral thigh, likely secondary to her past recent history of falls. 6. Exogenous obesity. 7. Recent history of rhabdomyolysis. PLAN: Occupational therapy is to evaluate. She has had a recent stay at the local swing bed unit. At this point, we will follow along regarding her rehab therapy tolerance and will be glad to assist regarding her rehab needs as she further medically stabilizes. Thank you for asking us to assist in this patient's care. ��������������������������������������������� ���������������������������������������� By: ��������������������������������������������� 1626 [id number] Duarte Salcedo MD /PMT
[2019-02-18 23:30] VITALS: BP 176/81
[~2019-02-18 23:38] MED LIST: AMLODIPINE BESYL5 M1 PO; ASPIR 8181 MG PO; BACTRIM DS TAB1 EACH PO; BENAZEPRIL HCL20 MG PO; COREG25 MG PO; GABAPENTIN 100100 MG PO; HYDRALAZINE 2525 MG PO; HYDROCODON-ACE1 EAC7 PO; IRON325 PO; LANTUS100 UNIT/M SUBQ; LASIX 20 MG TAB20 MG PO; LASIX 40 MG TAB40 M1 PO; LIPITOR40 MG PO; MIRALAX17 GM PO; NOVOLOG100 UNIT/1 SUBQ; PREDNISONE 10 M10 MG PO; SYNTHROID112 MC1 PO; ZANTAC 150MG T150 MG PO
--- NOTE | 2019-02-19 01:37 | NUR ---
PATIENT WAS A NEW ADMISSION TO THE UNIT THIS SHIFT. SHE ARRIVED VIA EMS AND WAS A DIRECT ADMISSION FROM [facility]. PATIENT IS ALERT AND ORIENTED BUT FORGETFUL AND IS ABLE TO PARTICIPATE IN ADMISSION AND CALL APPROPRIATELY FOR REQUESTS. NURSE TO COMPLETE ADMISSION AND INITIATE CARE PLAN.
[2019-02-19] MEDS ORDERED: SYSTANE COMPLET10 ML (01:47)
[2019-02-19] MEDS ORDERED: CLOTRIMAZOLE-BE15 GM TOP (01:47)
[2019-02-19] MEDS ORDERED: LOTENSIN20 MG PO (01:48)
[2019-02-19] MEDS ORDERED: LASIX 20 MG TAB20 MG PO (01:49)
[2019-02-19] MEDS ORDERED: KLOR-CON 1010 MEQ PO (01:49)
[2019-02-19] MEDS ORDERED: NASACORT10.8 ML NASAL (01:51)
[2019-02-19] MEDS ORDERED: B-121000 MC1 PO (01:52)
[2019-02-19] MEDS ORDERED: VITAMIN D2000 UNIT PO (01:53)
[2019-02-19 04:12] VITALS: BP 130/51
[2019-02-19 05:42] LABS: HEMOGLOBIN 9.5 gm/dL (12.0-15.0); MCH 32.3 pg (26.0-34.0); MCHC 33.8 g/dL (28.0-37.0); MCV 95.6 fL (80.0-100.0); RBC 2.93 mil/uL (4.20-5.00); RDW 15.8 % (10.5-14.5); WBC 5.7 thou/uL (4.0-11.0)
[2019-02-19 05:58] LABS: CALCIUM 10.7 mg/dL (8.5-10.1); CREATININE 2.5 mg/dL (0.6-1.0); POTASSIUM 4.2 mmol/L (3.5-5.1)
[2019-02-19 07:28] VITALS: BP 138/47
--- NOTE | 2019-02-19 10:12 | NUR ---
assesment: cm reviewed CHART AND MET WITH PATIENT AT THE BEDSIDE. PT REPORTS THAT SHE LIVES IN A HOUSE BY HERSELF. PT RECENTLY LEFT [facility] AND WENT TO [facility] AND WAS DISCHARGED HOME AND REPORTS THEY DID NOT ORDER HH. PT REPORTS THAT SHE HAS ABOUT 4 STEPS WITH HANDRAILS TO ENTER HER HOME AND NO STEPS ONCE INSIDE. PT REPORTS SHE HAS NOT HAD HH IN THE PAST. PT REPORTS THAT SHE AMBULATES USING A WALKER. PT STATES SHE HAS A GRAB BAR IN THE SHOWER. CM DISCUSSED ROLE. CM WILL CONTINUE TO FOLLOW TO ASSIST NEEDED. PT HAS NOT BEEN EVALUATED BY PT/OT.
--- NOTE | 2019-02-19 14:18 | NUR ---
Nutrition: pt admitted with left leg pain, CHF exacerbation. Wound risk to sacrum, also skin tears to right anterior LE. Consulted due to obesity. Pt on 2 gm Na, 1800 maikel ada diet. States avoids sugar and is allergic to eggs/dairy. Hx CKD, currently diuresing. Fair appetite and no recent weight changes reported. Uses convenience foods at home. RD completed low sodium education and offer tips on weight loss/BG control. See education log for details. Low nutrition risk.
[2019-02-19 15:59] VITALS: BP 149/52
--- NOTE | 2019-02-19 16:07 | EKG ---
[address] [address] ELECTROCARDIOGRAM REPORT Name: LINDAJOYCE Room #: 353-P ADM IN M.R.#: [id number] ������������������ Admission: 02/18/19 ������������������ Attend Phys: Baylee Balbuena MD Discharge: ������������������ Date of : 40 Report #: [id number] ����������������������������������������������������������������� [id number] THIS REPORT FOR: //name// [facility] Test Date: 2019-02-19 Test Time: 11:51:36 Pat Name: JOYCE MCKEON Department: Room: 353 Gender: F Mathematical Technician: Cris GUSTAFSON : 1940 Requested By: Savanna Ramirez Order Number: [id number] MD: Luis E Gonzalez Measurements Intervals [place] Rate: 57 P: 37 ME: 177 QRS: -26 QRSD: 142 T: 161 QT: 459 QTc: 447 Interpretive Statements Sinus rhythm Left bundle branch block Compared to ECG 01/26/2019 07:17:30 No significant changes Electronically Signed On 02-19-2019 16:07:08 CDT by Luis E Gonzalez [email or web address] ��������������������������������������������� <ELECTRONICALLY SIGNED> ���������������������������������������� By: Luis E Gonzalez MD ��������������������������������������������� 02/19/19 1607 1151 1151 Luis E Gonzalez MD /JAMES
--- NOTE | 2019-02-19 18:31 | NUR ---
PT ALERT AND ORIENTED TIMES FOUR WITH PERIODS OF CONFUSION. VSS, 97%RA, SR ON TELE. PT TOLERATES MEDS AND MEALS. PT UP TO CHAIR FOR MOST OF THE SHIFT. PT FAMILY AT BEDSIDE THIS AFTERNOON. PT SLOWLY PRORESSING DAISYRADS POC GOALS.
[2019-02-19 19:01] VITALS: BP 144/47
[2019-02-20 04:07] VITALS: BP 143/65
--- NOTE | 2019-02-20 04:20 | NUR ---
PATIENT IS PROGRESSING SLOWLY IN HER CARE PLAN. VITAL SIGNS STABLE WITH PATIENT HAVING NO COMPLAINTS OF NAUSEA. PATIENT DID COMPLAIN OF PAIN FREQUENTLY IN LOWER LEG WHICH NURSE TREATED WITH MEDICATION AND NON PHARMACOLOGICAL INTERVENTION. FULLY ORIENTED, PATIENT IS ABLE TO PARTICIPATE IN CARE AND CALL APPROPRIATELY FOR NEEDS. PATIENT DOES SEEM DESPONDENT OVER PRESENT SITUATION. NPO FROM MIDNIGHT ON IN ANTICIPATION OF TODAYS PROCEDURE. PATIENT HAS BEEN TO BEDSIDE COMMODE MULTIPLE TIMES WITH ASSISTANCE INCIDENT FREE. SHE IS UNABLE/UNWILLING TO ATTEMPT REPOSITIONING FROM RECLINER DUE TO PAIN IN LOWER EXTREMITY. NURSE HAS PROVIDED SKIN CARE WHEN PATIENT ALLOWS. CONTINUE PLAN OF CARE.
[2019-02-20 05:48] LABS: HEMATOCRIT 28.1 % (37.0-47.0); HEMOGLOBIN 9.5 gm/dL (12.0-15.0); MCH 32.2 pg (26.0-34.0); MCHC 33.7 g/dL (28.0-37.0); MCV 95.6 fL (80.0-100.0); RBC 2.94 mil/uL (4.20-5.00); RDW 15.7 % (10.5-14.5); WBC 5.6 thou/uL (4.0-11.0)
[2019-02-20 06:10] LABS: ALBUMIN 3.4 g/dL (3.4-5.0); CREATININE 2.9 mg/dL (0.6-1.0); MAGNESIUM 1.8 mg/dL (1.8-2.4); PHOSPHORUS 3.9 mg/dL (2.5-4.9); POTASSIUM 4.2 mmol/L (3.5-5.1)
[2019-02-20 07:30] VITALS: BP 142/88
[2019-02-20 07:32] VITALS: BP 153/61
--- NOTE | 2019-02-20 13:40 | NUR ---
AAOX4. WENT TO CARDIOLOGY DEPT FOR STRESS TEST. AFFECT FLAT BUT PLEASANT AND COOPERATIVE. GOOD APPEITITE FOR LUNCH. TYLENOL PROVIDED FOR C/O PAIN IN LOWER EXTREMITIES. SKIN WARM AND DRY. REMAINS ON ROOM AIR. IV LEFT AC SALINE LOCKED. REMAINS ON FLUID RESTRICTION. CONTINUES TO SIT UP IN CHAIR. FAMILY AT BEDSIDE.
--- NOTE | 2019-02-20 14:05 | NUR ---
WOUND CONSULT; ASSESSMENT OF A PATIENT LEFT LOWER LEG ANTERIOR OF [place] ETIOLOGY. DRAINING A LARGE AMOUNT OF SEROSANGUINOUS DRAINAGE. A SMALL STAGE 2 WOUND TO THE SACRAUM NOTED. THE PATIENT IS IN A CHAIR SINCE DISCHARGE AND IS REFUSING TO GET IN BED. EDUCATION WAS GIVEN RELATED TO WOUND HEALING. PATIENT STILL REFUSED AT THIS TIME. RECOMMENDATIONS; STAFF TO ENCOURAGE FREQUENT POSITION CHANGES TO IMPROVED HEALING. BOARDERED FOAM TO SACRUM AND LEFT LE DAILY/PRN DISCUSSED WITH STAFF
--- NOTE | 2019-02-20 15:22 | NUR ---
ON-GOING ASSESSMENT:CM REVIEWED CHART AND MET WITH PATIENT AT THE BEDSIDE. CM DISCUSSED POST ACUTE CARE AT DISCHARGE. PT WAS INTERESTED IN ACUTE REHAB ON 5N BUT 5N STATING THEY DO NOT FEEL PT WOULD BE A GOOD CANIDATE AND MORE APPROPRIATE FOR SNF. CM DISCUSSED WITH PATIENT. PT WAS RECENTLY AT [facility] SWING BED AND REPORTS SHE THOUGHT THAT PLACE WAS OK AND MAY CONSIDER GOING BACK THERE. PT STATES SHE WANTED TO THINK ABOUT IT. PTS SON WAS IN THE ROOM AND SHE WANTED TO FURTHER DISCUSS WITH THEM BEFORE MAKING A DECISION AND REQUESTED CM COME BACK IN THE AM. CM WILL CONTINUE TO FOLLOW TO ASSIST NEEDED.
[2019-02-20 15:58] VITALS: BP 160/64
--- NOTE | 2019-02-20 18:05 | NUR ---
WORKED WITH PT AND OT THIS AFTERNOON AND ADAMETLY REFUSED TO GET INTO THE BED. PATIENT IS ALERT AND ORIENTED X4 AND I EXPLAINED THAT WE CANNOT FORCE HER TO LAY IN THE BED - EXPLAINED THE IMPORTANCE OF RELIEF OF PRESSURE FROM SACRAL WOUND. PATIENT CONTINES TO SIT UP IN CHAIR. SAID SHE WOULD THINK ABOUT IT LATER TONIGHT.
[2019-02-20 19:45] VITALS: BP 148/55
[2019-02-21 04:00] VITALS: BP 139/51
--- NOTE | 2019-02-21 05:02 | NUR ---
Assumed pt care at 1900. Pt A/OX4,VSS been Sinus Paul on/off the monitor 45-50's asymptomatic. Pt prompted to lay in bed for a couple hours several times but declined to. Also declined wound care/picture taken on sacrum,allowed to look at RLE @ 0400,woundcare completed and picture taken. C/o left hip pain,medicated per EMAR with relief reported. Edema persists to BLE L>R 3-4+ pitting encouraged to elevate extremities but will only do so for a few minutes. Resting quietly eyes closed no distress noted. Fall precautions in place.
[2019-02-21 07:35] VITALS: BP 146/38
[2019-02-21 09:29] LABS: ABSOLUTE NEUTROPHILS 3.5 thou/uL (1.4-8.2); BASOPHILS 0.7 % (0.0-2.0); EOSINOPHILS 4.9 % (0.0-3.0); HEMATOCRIT 29.2 % (37.0-47.0); HEMOGLOBIN 9.9 gm/dL (12.0-15.0); LYMPHOCYTES 19.3 % (24.0-44.0); MCH 32.2 pg (26.0-34.0); MCHC 33.8 g/dL (28.0-37.0); MCV 95.3 fL (80.0-100.0); MONOCYTES 8.7 % (1.0-8.0); PLATELET COUNT 188 thou/uL (150-400); POLYS 66.4 % (36.0-66.0); RBC 3.06 mil/uL (4.20-5.00); RDW 15.4 % (10.5-14.5); WBC 5.2 thou/uL (4.0-11.0)
[2019-02-21 09:38] LABS: CALCIUM 10.6 mg/dL (8.5-10.1); CREATININE 3.3 mg/dL (0.6-1.0)
--- NOTE | 2019-02-21 10:50 | NUR ---
ON-GOING ASSESSMENT: CM FOLLOWED UP WITH PATIENT THIS AM TO SEE IF SHE IS AGREEABLE TO SNF. SHE STATES WELL WE CAN SEE IF THEY HAVE A BED. PT REPORTS SHE PREFERS TO GO BACK TO THE SWING BED SHE WAS RECENT AT AT [facility]. CM CONTACTED [facility] [phone] AND SPOKE WITH TOMEKA. CM FAXED REFERRAL TO THEIR FAX [phone] FOR THEM TO REVIEW. PATIENTS STRESS TEST IS STILL PENDING. CM WILL CONTINUE TO FOLLOW.
[2019-02-21 16:18] VITALS: BP 148/47
--- NOTE | 2019-02-21 18:35 | NUR ---
INTERVENTIONS AND ASSMESSMENTS DOCUMENTED. NURSE ASSUMED CARE MID SHIFT. PLAN OF CARE TO MONITOR INTAKE AND OUT PUT, PROMOTE A SAFE ENVIROMENT AND CONTROL PAIN WILL BE CONTINUED.
[2019-02-21 19:15] VITALS: BP 140/44
--- NOTE | 2019-02-21 19:40 | NUR ---
PATIENT WAS PROVIDED IV PAIN MEDICATIONS PRIOR TO CAT SCAN. THEY WERE SUPPOSED TO COME BACK TO GET PATIENT FOR CT SCAN. HOWEVER, THEY WERE UNABLE IMMEDIATELY TO GET PATIENT. NURSE CALLED THEM FOR TRANSPORT OF PATIENT TO CAT SCAN AND PAIN MEDICATION WAS GIVEN. WHEN THEY ARRIVED SHE WAS EATING SUPPER AND WANTED TO FINISH SUPPER. PT FINISHED THEN NURSE CALLED CT. THEY ARRIVED TO GET HER, NURSE TALKED WITH HER ABOUT REASON FOR TEST AND SHE WENT DOWN TO CT. SHE THEN GOT DOWN TO CT AND REFUSED TO HAVE IT DONE. SHE WAS BROUGHT BACK TO UNIT AND REPORT HAD ALREADY BEEN GIVEN TO BREAK AND LOAD OPERATOR RN FOR CONTINUATION OF CARE.
--- NOTE | 2019-02-22 00:29 | NUR ---
PT MAKING POOR PROGRESS TOWARDS GOALS. PAIN WHILE AT REST, SITTING IN CHAIR WAS A REPORTED "ZERO." STATES 10/10 PAIN WHEN STANDING UP. TONIGHT PT REQUESTED TO GO BACK TO BED FROM THE CHAIR. STAFF INFORMED PT TO JUST WAIT MOMENTARILY UNTIL A SECOND STAFF MEMBER COULD COME ASSIST. PT DID NOT WAIT, AND NEARLY IMMEDIATELY STOOD UP FROM THE CHAIR. PT INSTANTLY STARTED SCREAMING "NO NO NO, I CAN'T DO THIS." X2 STAFF PROVIDED IMMEDIATE ASSISTANCE AND PT WAS ABLE TO TAKE A FEW STEP TO GET INTO BED. PT SCREAMED THROUGHOUT THAT ENTIRE EPISODE AND CONTINUED TO WHILE LYING IN BED. X2 LORTAB GIVEN PT STATED HER PAIN WAS "TEN." PT THEN ASKED FOR A "COUGH DROP" BECAUSE HER MOUTH IS DRY. PO FLUIDS WERE OFFERED. DID ASK IF SHE HAD BEEN COUGHING TO WHICH THE PT WOULD NOT ANSWER. "I HAVE SOME COUGH DROPS IN THE DRAWER." INFORMED PT THAT SHE DID NOT HAVE AN ORDER FOR THAT MEDICATION AND THAT SHE COULD NOT TAKE THEM." OFFERED TO GET AN ORDER BUT PT SAID IN LAURA AND SHORT VOICE "DON'T BOTHER." "THEY'VE BEEN GIVING THEM TO ME." PT WOULD NOT SAY WHO "THEY" WERE. PT ALSO REFUSED TO REPEAT THE CT SCAN. PT WAS DOWN IN THE CT AREA BUT THEN REFUSED TO ALLOW THE SCAN TO BE DONE AGAIN. ATTEMPTED TO INFORM PT THAT THE SCAN WAS OF HER LEFT LEG DOWN TO HER KNEE WAS REQUESTED BY DR. RAMIREZ BUT PT CONTINUED TO REFUSE. "THEY KNEW THEY WERE SUPPOSED TO DO THAT THE FIRST TIME." UNABLE TO OBTAIN PTS COOPERATION TO REPEAT CT SCAN.
[2019-02-22 04:15] VITALS: BP 139/50
[2019-02-22 05:39] LABS: HEMOGLOBIN 8.8 gm/dL (12.0-15.0); MCH 32.3 pg (26.0-34.0); MCHC 33.8 g/dL (28.0-37.0); MCV 95.4 fL (80.0-100.0); RBC 2.72 mil/uL (4.20-5.00); RDW 15.3 % (10.5-14.5); WBC 4.8 thou/uL (4.0-11.0)
[2019-02-22 05:49] LABS: CALCIUM 9.7 mg/dL (8.5-10.1); CREATININE 3.6 mg/dL (0.6-1.0); PHOSPHORUS 4.8 mg/dL (2.5-4.9); POTASSIUM 4.1 mmol/L (3.5-5.1)
[2019-02-22 07:33] VITALS: BP 157/64
--- NOTE | 2019-02-22 07:39 | HC ---
[facility] [place] [address] CONSULTATION Name: JOYCE MCKEON Room #: 353-P ADM IN M.R.#: [id number] Admission: 02/18/19 ������������������ Attend Phys: Baylee Balbuena MD Discharge: ������������������ Date of : 40 Report #: [id number] THIS REPORT FOR: //name// CC: Kyree Balbuena REASON FOR THE PRESENTATION: Lower extremity swelling. REASON FOR THE CONSULTATION: Elevated creatinine. HISTORY OF PRESENT ILLNESS: This is a 78-year-old who was evaluated by our renal service last month. She has longstanding diabetes mellitus and hypertension. She was admitted to the hospital because of repeated falls and was found to have an elevated creatinine at 3.3 last month. She was found to have low ejection fraction and was discharged to a nursing facility; however, she continued to have major issues with her lower extremity swelling and re-presented yesterday with weakness, lower extremity swelling. She initially reported to [facility]. Creatinine on the presentation there revealed a value of 2.4. She was discharged with a creatinine value of 2.0. She had all criteria of chronic kidney disease on her presentation and evaluation during the last visit. I am being consulted to manage her chronic kidney disease. PAST MEDICAL HISTORY: 1. Diabetes mellitus. 2. Hypertension. 3. Heart failure with an ejection fraction of around 40%. 4. Mild mitral regurgitation. 5. Mild aortic regurgitation. SOCIAL HISTORY: No drug or alcohol abuse. MEDICATIONS: 1. Aspirin. 2. Carvedilol. 3. Levothyroxine. 4. Lasix. ALLERGIES: FISH, AMOXICILLIN AND DIG. PAST SURGICAL HISTORY: 1. Ovarian surgery. 2. Cataract surgery. ADDITIONAL MEDICAL HISTORY: Hypercalcemia, hypothyroidism. REVIEW OF SYSTEMS: [facility] [address] [place] [address] CONSULTATION Name: JOYCE MCKEON Room #: 353-P [facility] IN M.R.#: [id number] Admission: 02/18/19 ������������������ Attend Phys: Baylee Balbuena MD Discharge: ������������������ Date of : 40 Report #: [id number] GENERAL: Significant for weakness. CARDIOVASCULAR: Significant for lower extremity edema. PULMONARY: No cough or hemoptysis. GASTROINTESTINAL: No nausea or vomiting. GENITOURINARY: No frequency. No urgency. MUSCULOSKELETAL: Back pain and bilateral lower extremity pain. LABORATORY AND DIAGNOSTIC DATA: Laboratory values reviewed, hemoglobin is 9.5. Sodium 137, BUN 58, and creatinine is 2.5. ASSESSMENT, IMPRESSION: 1. Chronic kidney disease. 2. Anemia. 3. Heart failure. 4. Anasarca due to heart failure. 5. Diabetes mellitus with diabetic retinopathy. 6. Hypothyroidism. PLAN: 1. Initiate the fluid on appropriate diuretic regimen. 2. Fluid restriction. 3. Monitor renal function. 4. Salt restriction. 5. Resume her blood pressure and sugar medications. 6. We will continue to follow along. ��������������������������������������������� <ELECTRONICALLY SIGNED> ���������������������������������������� By: Angélica Weiss MD ��������������������������������������������� 02/22/19 0739 0713 08 Angélica Weiss MD /sandy
[2019-02-22 08:50] VITALS: BP 157/64
--- NOTE | 2019-02-22 10:40 | NUR ---
NURSE AND CASE MANAGEMENT SPOKE WITH PT REGARDING TAKING NEW CT SCAN AND PATIENT STILL REFUSED. WILL CONTINUE TO ASSESS.
--- NOTE | 2019-02-22 12:06 | NUR ---
PT OFF UNIT TO CT.
--- NOTE | 2019-02-22 12:24 | NUR ---
PT RETURN FROM CT AFTER REFUSING TO DO LOWER EXT CT AGAIN. BROUGHT FAMILY TO CT TO CONVINCE PATIENT HOWEVER PATIENT STILL REFUSE.
--- NOTE | 2019-02-22 13:33 | NUR ---
PATIENT WAS ABLE TO COMPLETE CT SCAN LEFT LOWER EXTREMITY.
[2019-02-22] MEDS ORDERED: PEPCID20 MG PO (14:27)
[2019-02-22] MEDS ORDERED: TUMS PO (14:27)
[2019-02-22] MEDS ORDERED: NOVOLOG100 UNIT/1 SUBQ (14:27)
[2019-02-22] MEDS ORDERED: TYLENOL325 MG PO (14:27)
[2019-02-22] MEDS ORDERED: DEMADEX20 MG PO (14:27)
[2019-02-22] MEDS ORDERED: SYNTHROID125 MC1 PO (14:27)
--- NOTE | 2019-02-22 14:41 | NUR ---
REPORT CALLED TO TO [facility] BED. PATIENT WILL TRANSPORT VIA AMBULANCE AND REQUESTED TO LEAVE IV IN PLACE.
--- NOTE | 2019-02-22 14:59 | NUR ---
on-going assessment: CM REVIEWED CHART AND MET WITH PATIENT AND SPOKE WITH ATTENDING. PT IS TO [place] TODAY TO [facility] SWING BED. CM NOTIFIED TO AT [facility] THAT PATIENT WOULD BE COMING TODAY AND WAS APPROVED YESTERDAY BY TOMEKA, SHE STATED YES THEY ARE EXPECTING HER. CM ORDERED CHART COPY AND NOTIFIED LASER SYSTEMS ENGINEER. CM ALSO CONTACTED PATIENTS BROTHER MARJORIE WHO CAME WITH HIS TO [employer]OLD BURNISHER PATIENT AND TAKE HER TO [facility] SWING BED. CM PROVIDED BEDSIDE RN NUMBER FOR REPORT [phone]. CM FAXED D.C ORDERS TO THEIR FAX [phone]. PATIENTS BROTHER AND HIS ARE TRANSPORTING PATIENT AND CM NOTFIED [facility] WELL BEDSIDE RN TO SEND THEM WITH CHART COPY. PT REPORTS NO FURTHER NEEDS FROM JOSE.
--- NOTE | 2019-02-22 15:08 | NUR ---
TELEMETRY DISCONTINUED PATIENT AND FAMILY UNDERSTAND ALL FOLLOW UP ORDERS AND FAMILY WILL TRANSPORT TO [facility].
== END 2019-02-22 15:16 | DRG 682 ==
LOC: 3W 23:38
PROVIDERS: Hospitalist; Nurse Practitioner Family; ADMIT Internal Medicine
DX: N17.9 Acute kidney failure, unspecified (principal); I50.43 Acute on chronic combined systolic (congestive) and diastolic (congestive) heart failure; I13.0 Hypertensive heart and chronic kidney disease with heart failure and stage 1 through stage 4 chronic kidney disease, or unspecified chronic kidney disease; I42.9 Cardiomyopathy, unspecified; E03.9 Hypothyroidism, unspecified; D64.9 Anemia, unspecified; E11.319 Type 2 diabetes mellitus with unspecified diabetic retinopathy without macular edema; E66.09 Other obesity due to excess calories; E78.5 Hyperlipidemia, unspecified; I08.0 Rheumatic disorders of both mitral and aortic valves; Z60.2 Problems related to living alone; E11.40 Type 2 diabetes mellitus with diabetic neuropathy, unspecified; E11.22 Type 2 diabetes mellitus with diabetic chronic kidney disease; Z82.49 Family history of ischemic heart disease and other diseases of the circulatory system; Z88.1 Allergy status to other antibiotic agents; Z91.013 Allergy to seafood; Z98.49 Cataract extraction status, unspecified eye; Z68.38 Body mass index [BMI] 38.0-38.9, adult; Z91.012 Allergy to eggs; I25.2 Old myocardial infarction; Z83.3 Family history of diabetes mellitus; Z87.891 Personal history of nicotine dependence
CPT/HCPCS: 10879

== ENCOUNTER 2020-01-15 09:40 | Inpatient (IN) | payer OTHER ==
[~2020-01-15] VITALS: Ht 165.1 cm; Wt 85.3 kg
[~2020-01-15 09:40] MED LIST changes: +B-121000 MC1 PO; +CLOTRIMAZOLE-BE15 GM TOP; +DEMADEX20 MG PO; +KLOR-CON 1010 MEQ PO; +LOTENSIN20 MG PO; +NASACORT10.8 ML NASAL; +PEPCID20 MG PO; +SYNTHROID125 MC1 PO; +SYSTANE COMPLET10 ML; +TUMS PO; +TYLENOL325 MG PO; +VITAMIN D2000 UNIT PO
[2020-01-15 11:30] VITALS: BP 119/53
--- NOTE | 2020-01-15 12:08 | NUR ---
PAGED AGAIN IN RESPONSE FOR PT. EVALUATION AND PAIN MEDICATION. PT. C/O 05/16 PAIN IN HER LOWER EXTREMETIES ONLY AT THIS TIME. DENIES ANY CHEST PAIN, NO SOB EITHER. REPORTS HAS HAD THIS PAIN FOR OVER AMONTH "ON AND OFF".
[2020-01-15 16:00] VITALS: BP 118/54
--- NOTE | 2020-01-15 16:15 | NUR ---
PT. RESTING WITH EYES CLOSED, AWAKENS TO VERBAL QUESTIONS. SHE IS NOW REPORTING PAIN A 3/10, "BETTER". NOT VERBAL SHE WAS AT ADMISSION HOWEVER HAS HAD PAIN MEDICATION SINCE THEN AND THAT APPEARS TO BE WHY SHE IS MORE ":SLEEPY"-OVERALL. ORIENTS TO LOCATION AND HER NAME AND YEAR, BUT VERY SLOW TO RECALL. DENIES ANY SOB, DENIES ANY CP.
[2020-01-15 19:30] VITALS: BP 114/59
[2020-01-16 04:00] VITALS: BP 139/70
[2020-01-16 05:28] LABS: HEMATOCRIT 37.8 % (37.0-47.0); HEMOGLOBIN 11.9 gm/dL (12.0-15.0); MCH 32.3 pg (26.0-34.0); MCHC 31.4 g/dL (28.0-37.0); MCV 102.8 fL (80.0-100.0); PLATELET COUNT 113 thou/uL (150-400); RBC 3.68 mil/uL (4.20-5.00); RDW 16.8 % (10.5-14.5); WBC 17.6 thou/uL (4.0-11.0)
--- NOTE | 2020-01-16 05:53 | NUR ---
PATIENTS CARES WERE ASSUMED AT SHIFT CHANGE. PATIENT WAS ASSESSED AND MEDS WERE PASSED. PATIENT HAD A LARGE EMISIS AT SHIFT CHANGE. NOT VIEW BY THE NURSE. THE NEXT EPISOD WAS SEEN BY THE NURSE. TABACCO APPERANCE EMISIS. NG PLACED IN RIGHT NARE. TO 60CM. KUB WAS DONE NG IS PROPERLY PLACED IN THE FUNDUS OF THE STOMACH. DOCUMENTATION OF THIS WAS PLACED IN THE FRONT OF THE CHART. HOUR ROUNDS WERE DONE PATIENT MONS ALOT. PATIENT IN 214 NOT HAPPY HEARING HER. THE BED IS IN A LOW AND LOCKED POSITION.
[2020-01-16 06:26] LABS: CALCIUM 8.6 mg/dL (8.5-10.1); CREATININE 4.4 mg/dL (0.6-1.0); POTASSIUM 5.4 mmol/L (3.5-5.1)
[2020-01-16 07:30] VITALS: BP 144/69
[2020-01-16 08:25] LABS: ABSOLUTE NEUTROPHILS 16.4 thou/uL (1.4-8.2); METAMYELOCYTES 2 %
[2020-01-16 08:26] LABS: ANISOCYTOSIS 1+; MACROCYTES 1+
--- NOTE | 2020-01-16 08:34 | EKG ---
[facility] [place] [address] ELECTROCARDIOGRAM REPORT Name: JOYCE MCKEON Room #: 215-P ADM IN M.R.#: [id number] Admission: 01/15/20 Attend Phys: Elliot Lutz MD Discharge: Date of : 40 Report #: [id number] THIS REPORT FOR: cc: CARLOS PINEDO Physician not on staff Luis E Gonzalez MD ~ THIS REPORT FOR: //name// [facility] Test Date: 2020-01-16 Test Time: 08:26:14 Pat Name: JOYCE MCKEON Department: Room: 215 P Gender: F Cell Liner: KIRK : 1940 Requested By: Cynthia Elmore Order Number: [id number] MD: Luis E Gonzalez Measurements Intervals [place] Rate: 91 P: OR: QRS: -17 QRSD: 146 T: 150 QT: 397 QTc: 489 Interpretive Statements Sinus rhythm. Incomplete LBBB Compared to ECG 02/19/2019 11:51:36 Ventricular premature complex(es) now present Electronically Signed On 01-16-2020 8:33:23 CDT by Luis E Gonzalez [email or web address] <ELECTRONICALLY SIGNED> By: Luis E Gonzalez MD 01/16/20832 5 5 Luis E Gonzalez MD /EPI
--- NOTE | 2020-01-16 09:00 | NUR ---
chart review. cm tried x 2 via phone call to reach pt and number was busy this am.
[2020-01-16 11:30] VITALS: BP 128/74
--- NOTE | 2020-01-16 13:59 | NUR ---
PAIN MEDICATION ORDER RECIEVED AND CALLED PHARMACY TO UPDATE CHERELLE SO I CAN GIVE HER MEDICATION. PT. C/O SEVERE LEG PAIN IN LOWER EXTREMETIES AT THIS TIME.
--- NOTE | 2020-01-16 14:02 | NUR ---
cm spoke with bedside nurse who provided rhea walton # [phone]. cm had already tried reaching her brother and no answer via phone call. cm called rhea walton he answered, intro to cm and transition of care ie rehab and hh. he reported " we live in house, i put in ramp and deck to get into house and little ramp into the kitchen. she is independent when feeling ok. manages her own medication. live in [place]. has walker, wheel chair, shower chair, grab bars by the toilet. had home o2 when she was at my uncle but after rehab she not had any home oxygen. she had [facility] in past when she was staying with her brother but they then never came here when se came back home. been to [facility] bed in past. thank you"/rhea walton. will cont following as needed for dc needs.
--- NOTE | 2020-01-16 16:02 | HC ---
[facility] [place] [address] CONSULTATION Name: JOYCE MCKEON Room #: 215-P ADM IN M.R.#: [id number] Admission: 01/15/20 Attend Phys: Elliot Lutz MD Discharge: Date of : 40 Report #: [id number] THIS REPORT FOR: cc: CARLOS PINEDO Physician not on staff Mary Mcdonald MD ~ CC: CARLOS Lutz Physician staff DATE OF SERVICE: 01/16/2020 ENDOCRINE CONSULTATION NOTE CONSULTING PHYSICIAN: Dr. Lutz REASON FOR CONSULTATION: Hypothyroidism, type 2 diabetes mellitus. HISTORY OF PRESENT ILLNESS: This is a 79-year-old female patient whose medical background is significant for multiple issues including type 2 diabetes mellitus, hypothyroidism, chronic lower extremity wounds, chronic kidney disease, hypertension, hyperlipidemia. The patient was admitted here after she was directly transferred from [facility] due to worsening heart failure, nonhealing lower extremity wounds. The patient's background is significant for hypothyroidism that occurred following the director of web marketing of radioactive iodine and some form of thyroid resection surgery in the early due to hyperthyroidism. The patient has been maintained on a stable dose of levothyroxine 125 mcg daily, which she states has been taking regularly over the past few months. The patient takes her levothyroxine on an empty stomach in the morning and tries to space it by at least 30 minutes from food. She does not recall any major therapeutic gaps in her therapy. The patient has been dealing with type 2 diabetes mellitus for many years as well. Her current regimen consists of Lantus insulin 20 units at bedtime and she reports fairly well controlled blood glucose values without major issues of hypoglycemia. The patient is hyperlipidemic and is maintained on atorvastatin 40 mg daily as well as hypertensive and is maintained on Coreg 25 mg b.i.d. and hydralazine 25 mg b.i.d. REVIEW OF SYSTEMS: [facility] [address] [place] [address] CONSULTATION Name: JOYCE MCKEON Room #: 215-P [facility] IN [facility].#: [id number] Admission: 01/15/20 Attend Phys: Elliot Lutz MD Discharge: Date of : 40 Report #: [id number] CONSTITUTIONAL: Fatigue, tiredness, but not fever or chills or changes in body weight. The patient has been having poor appetite. HEENT: Negative for sore throat, sinus pain, ear drainage. PULMONARY: Occasional shortness of breath, dyspnea on exertion, orthopnea, intermittent cough, but no hemoptysis. CARDIAC: Dyspnea on exertion, orthopnea, occasional palpitations, lower extremity edema, but not chest pain. GASTROINTESTINAL: Nausea, occasional vomiting, abdominal distention, abdominal discomfort. No hematemesis. NEUROLOGIC: No seizures, loss of consciousness or severe frequent headaches, but she has intermittent issues with numbness and tingling over both lower extremities. PSYCHIATRIC: Negative for delusions, hallucinations. Otherwise, review of systems is noncontributory other than those mentioned in HPI. PAST MEDICAL HISTORY: 1. Type 2 diabetes mellitus. 2. Diabetic neuropathy. 3. Diabetic retinopathy. 4. Hypertension. 5. Hyperlipidemia. 6. Chronic kidney disease, baseline serum creatinine is 2.5-3.5. 7. 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 8. CHF. 9. Saul's palsy. 10. Cataracts. 11. History of non-STEMI, CAD. 12. History of hypomagnesemia. OUTPATIENT MEDICATIONS: Aspirin 81 mg daily, atorvastatin 40 mg at bedtime, carvedilol 25 mg b.i.d., ferrous sulfate 325 mg daily, hydralazine 25 mg b.i.d., Lantus insulin 20 units at bedtime, KCl 10 mEq daily, vitamin B12 at 1000 mcg daily, vitamin D3 at 1000 units daily. ALLERGIES: She is allergic to AMOXICILLIN, EGGS and IODINE. FAMILY HISTORY: Noncontributory. SOCIAL HISTORY: She has one adopted son. She lives with him. She denies use of tobacco or alcohol. PHYSICAL EXAMINATION: VITAL SIGNS: Blood pressure is 144/69 mmHg, heart rate is 99 beats per minute, respiration 18 per minute, temperature 36.4 Celsius. CONSTITUTIONAL: She is lying supine in bed, appears a bit uncomfortable, [place] [address] CONSULTATION Name: JOYCE MCKEON Room #: 215-P [facility] IN M.R.#: [id number] Admission: 01/15/20 Attend Phys: Elliot uLtz MD Discharge: Date of : 40 Report #: [id number] apparent pain or distress. HEENT: Anicteric sclerae. Intact extraocular motions. She has a nasogastric tube in place. NECK: Supple, with a bit of JVD, no thyromegaly. CHEST: Exam is noted for limited air entry bilaterally with scattered rales, rhonchi, but not wheezes. HEART: Regular rate and rhythm with a faint systolic ejection murmur. ABDOMEN: Distended, soft, lax. No guarding. Sluggish bowel sounds. EXTREMITIES: Lower extremity exam is noted for cellulitic changes and edema. NEUROLOGIC: Awake, alert and oriented to time, place and person. The remainder of her examination is largely nonfocal other than for peripheral sensory deficits. PSYCHIATRIC: Interactive. Normal mood, normal affect and normal thought process. LABORATORY RESULTS: Blood glucose values have ranged from 71-115, but predominantly been below 100 mg/dL since her admission. Sodium 135, potassium 5.4, chloride 102, CO2 of 17, anion gap 16, BUN 112, creatinine 4.4, glucose 76, AST 153, total bilirubin 0.4, calcium 8.6, phosphorus 4.8, magnesium 2.0, alkaline phosphatase 32, ALT 112, total protein 4.9, albumin 3.0. EGFR 10. Total CPK 723. Troponin 0.28. BNP more than 70,000. White blood count 17.6, hemoglobin 11.9, hematocrit 37.8, platelets 113. TSH 15.10. Hemoglobin A1c in 01/2019 was 6.4%. Current free T4 is at 1.0. ASSESSMENT AND PLAN: 1. Hypothyroidism. This has been a longstanding issue in the aftermath of radioactive iodine treatment and a form of thyroidectomy surgery for the issue of Graves' disease more than 30 years ago. The patient has been maintained on a stable dose of levothyroxine of 125 mcg daily without apparent interruptions. However, it seems that her replacement is inadequate judging by her TSH and as such I would advise on raising her dose to 150 mcg daily, especially with her worsening issues from the CHF standpoint. TFT followup on the outcome of this change will be needed in 6-8 weeks. 2. Type 2 diabetes mellitus. The patient is maintained on Lantus monotherapy and reports doing well in this line of treatment. Since her arrival to the hospital, she has had minimal p.o. intake and has been maintained off of her usual Lantus therapy and only placed on Humalog supplemental scale to be used as needed, which has not been activated so far. I will further downtone her scale so that she does not receive rescue doses until she is 200 mg/dL or higher. Blood glucose monitoring will continue a.c. and at bedtime so as to resume Lantus therapy when indicated and when her p.o. intake is sustained. I will check a hemoglobin A1c to better evaluate her more recent glycemic state of control. 3. Hypertension. The patient's level of blood pressure control has been adequate. She is to continue with the same therapy. 4. Hyperlipidemia. The patient is maintained on atorvastatin with adequate [address] [address] CONSULTATION Name: JOYCE MCKEON Room #: 215-P [facility] IN M.R.#: [id number] Admission: 01/15/20 Attend Phys: Elliot Lutz MD Discharge: Date of : 40 Report #: [id number] control, she is to continue with the same. 5. Cellulitis affecting both lower extremities. She is currently on vancomycin. 6. Congestive heart failure. The patient is in florid CHF and has a background of atrial fibrillation, CAD, the Cardiology team is following and adjustments are to be performed as per their input. I have reviewed the patient's current and past clinical care notes, laboratory data and other pertinent information as well as her records from [facility] for over 35 minutes in addition to my oxfv-or-fous encounter time with the patient. I certainly appreciate this consultation by Dr. Lutz. <ELECTRONICALLY SIGNED> By: Mary Mcdonald MD 01/16/20 1602 1138 1245 Mary Mcdonald MD /nt
--- NOTE | 2020-01-16 17:31 | NUR ---
PT. BACK FROM CT SCAN STABLE AT THIS TIME WILL RECHECK BLOOD SUGAR POST GLUCOSE TABLETS AN im INJECTION OF GLUCAGON. MORE CHATTY THIS AFTERNOON, PAIN IS STARTING TO FINALLY EASE UP FOR HER WITH FENTANYL EVERY 3 HOURS. SHE PULLED OUT HER NG TUBE THIS AFTERNOON. DENIES ANY N/V AT PRESENT WILL REPLACE IF NAUSEA RETURNS AND OR EMESIS. DRESSING CHANGE AND MS04 SILVADEME CREME APPLIED TO LOWER EXTREMETIES BILATERLALY. DENIES CP. DENIES SOB. ON ROOM AIR/
[2020-01-16 20:10] VITALS: BP 134/49
[2020-01-17 00:07] LABS: GLYCOHEMOGLOBIN (HGB A1C) 5.2 % (4.8-5.6)
[2020-01-17 01:21] LABS: HEMATOCRIT 37.8 % (37.0-47.0); HEMOGLOBIN 11.8 gm/dL (12.0-15.0); MCH 32.1 pg (26.0-34.0); MCHC 31.1 g/dL (28.0-37.0); MCV 103.3 fL (80.0-100.0); PLATELET COUNT 102 thou/uL (150-400); RBC 3.66 mil/uL (4.20-5.00); RDW 17.2 % (10.5-14.5); WBC 20.3 thou/uL (4.0-11.0)
[2020-01-17 01:30] LABS: ALBUMIN 2.8 g/dL (3.4-5.0); CALCIUM 8.5 mg/dL (8.5-10.1); CREATININE 4.5 mg/dL (0.6-1.0); PHOSPHORUS 6.9 mg/dL (2.5-4.9); POTASSIUM 5.4 mmol/L (3.5-5.1)
[2020-01-17 03:39] LABS: ABSOLUTE NEUTROPHILS 18.9 thou/uL (1.4-8.2)
[2020-01-17 03:40] LABS: ANISOCYTOSIS 1+; BURR CELLS 1+; MACROCYTES 1+; PLATELET ESTIMATE DECREASED; POIKILOCYTOSIS 1+
[2020-01-17 04:45] VITALS: BP 114/48
--- NOTE | 2020-01-17 05:29 | NUR ---
ASSUMED PT CARE AT 1900. PT IS ALERT AND CONFUSED. PT CONTINOUSLY COMPLAINS OF GENERALIZED PAIN. PT IS LAYING IN BED. FALL PRECAUTION IN PLACE. ASSESSMENT COMPLETED AND DOCUMENTED. SCHEDULED MEDS ADMINISTERED TO PT. PT IS NPO AFTER MIDNIGHT FOR A SCHEDULED EGD. NO FURTHER NEEDS AT THIS TIME.
[2020-01-17 07:59] VITALS: BP 118/58
--- NOTE | 2020-01-17 08:07 | NUR ---
ASSUMED CARE OF PT AT SHIFT CHANGE, A&OX4, YET SHOWS CONFUSION, IMPULSIVITY. 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 PT HAD TELE BOX IN THE FLOOR, HAD SENT MESSAGE TO MATERIAL ATTENDANT ON PT'S CODE STATUS, HTN, AND MED REC. REPORTS OF EGD THIS A.M. GAVE HER A MOUTH SWAB. REPORTS OF YELLING/MOANING/SCREAMING UNTIL SOMEONE IS IN THE ROOM. BED NOT FUNCTIONING, WILL TRADE IT OUT WHEN PT LEAVES FOR A PROCEDURE. WILL CONTINUE TO MONITOR
--- NOTE | 2020-01-17 12:17 | NUR ---
WOUND CARE CONSULT; ROUNDING WITH DR LOPEZ AND KAREN MALAVE. PAINFUL LE WOUNDS. CURRENT ORDERS ARE SILVADINE/MORPHINE CREAM,XEROFORM,KERLIX TO BILATERAL LE WOUNDS. NO CHANGES AT THIS TIME.
--- NOTE | 2020-01-17 12:26 | HC ---
[facility] [place] [address] CONSULTATION Name: JOYCE MCKEON Room #: 215-P ADM IN M.R.#: [id number] Admission: 01/15/20 Attend Phys: Elliot Lutz MD Discharge: Date of : 40 Report #: [id number] THIS REPORT FOR: cc: KYREE CAUSEY Physician not on staff Milind Abdullahi MD ~ CC: KYREE Lutz Physician staff DATE OF SERVICE: 01/16/2020 WOUND CARE CONSULTATION PERSONAL PHYSICIAN: Dr. Kyree Causey. CHIEF COMPLAINT: Right leg wounds. HISTORY OF PRESENT ILLNESS: This is a 79-year-old white female who is currently hospitalized for increasing pain, swelling and ulceration on his right lower extremity. The patient initially was hospitalized at [facility] and she was then transferred to [facility] for further evaluation and workup. The patient also currently has an NG in place for persistent vomiting and possible workup for small-bowel obstruction. The patient herself is an extremely poor historian. It appears these wounds have been present for several weeks and caused her significant amount of pain. The nursing staff deny any other wound care concerns at this time. PAST MEDICAL HISTORY: Significant for congestive heart failure, chronic renal disease, diabetes, coronary artery disease, hypertension. CURRENT MEDICATIONS: Multiple, I reviewed the patient's medication list. DRUG ALLERGIES: Include AMOXICILLIN, IODINE. SOCIAL HISTORY: The patient does not smoke or drink alcohol. Lives with her family. FAMILY HISTORY AND REVIEW OF SYSTEMS: Unobtainable due to the patient's altered mental status and extremely poor historian. PHYSICAL EXAMINATION: VITAL SIGNS: Temperature 36.4, pulse 95, respirations 18, BP 118/58. GENERAL: This is an alert and oriented x 1 person, but not place or time, elderly white female who is in moderate distress secondary to symptoms. HEENT: Normocephalic, atraumatic. Mucous membranes are dry. Nasogastric tube [facility] [address] [place] [address] CONSULTATION Name: JOYCE MCKEON Room #: [facility] ADM IN [facility].#: [id number] Admission: 01/15/20 Attend Phys: Elliot Lutz MD Discharge: Date of : 40 Report #: [id number] in the right naris. Pupils are round. Sclerae white. NECK: Supple, nontender. LUNGS: Clear. HEART: Regular. ABDOMEN: Soft, diffusely tender and distended without rebound or guarding. EXTREMITIES: The patient moves all extremities without difficulty. Evaluation of right lower extremity reveals circumferential ulcerations on the right pretibial region extending around on to the calf. There are areas of ecchymoses with 3+ edema. Distal pulses are faint Right heel is intact. Right foot is intact. Left lower extremity does not show any obvious open ulcerations. Left heel is intact. Right pretibial region has increased erythema, warmth with skin tenderness. NEUROLOGIC: Cranial nerves 2-12 grossly intact. Motor and sensory grossly intact. LABORATORY VALUES: White count 17.6, hemoglobin 11.9, albumin 2.8. IMPRESSION: 1. Chronic right lower extremity ulceration with surrounding cellulitis. 2. Venous insufficiency with lower extremity edema. 3. Concern for peripheral arterial disease. 4. Diabetes mellitus. 5. Generalized debility. 6. Abdominal pain with nausea, workup undergoing 7. Protein-calorie malnutrition -- severe with albumin of 2.8. PLAN: We will check arterial Dopplers in this patient as well as morphine, Silvadene cream to the ulcerations for pain control. Cover this with Xeroform, ABD, Kerlix and Vel lightly, pending the arterial Doppler results. We will continue with all other current medications and we will continue to follow the patient. I appreciate ability to consult. <ELECTRONICALLY SIGNED> By: Milind Abdullahi MD 01/17/20 1226 0820 0831 Milind Abdullahi MD /nt
[2020-01-17 12:27] VITALS: BP 84/39
--- NOTE | 2020-01-17 12:31 | NUR ---
JORGE REPORTED OFF LOW B/PS AND A BRIEF PULSE OF 3OS, WILL CALL DR. NUNES'S OFFICE ON THIS WELL. NO IVF, AND HAS BEEN NPO
--- NOTE | 2020-01-17 14:33 | NUR ---
Case discussed with the care team. Therapy evals in progress. 5N is following along but will likely recommend SNF d/t plof. The pt has been at [facility] in [facility] in the past. She also had HH with [facility] out of [place], [place]. No weekend dc anticipated. EGD this am. Will followup early next week for SNF/HH referral pending her progress.
[2020-01-17 15:10] VITALS: BP 123/96
--- NOTE | 2020-01-17 15:31 | NUR ---
PATIENT SEEN THIS DATE FOR REHAB CONSULT BY ANGELIA BARBOSA NP WITH DR. STEVENS. AT THIS TIME PATIENT DOES NOT HAVE TOLERANCE FOR ACUTE REHAB STAY. WILL CONTINUE TO FOLLOW DURING PATIENT'S STAY TO SEE IF TOLERANCE IMPROVES. ATTORNEY RECRUITER INFORMED. THANK YOU FOR THIS REFERRAL.
[2020-01-17 20:00] VITALS: BP 78/38
[2020-01-18] VITALS (12 sets, daily range): BP systolic 75–107; BP diastolic 26–54
[2020-01-18 04:26] LABS: HEMATOCRIT 30.1 % (37.0-47.0)
[2020-01-18 04:31] LABS: HEMOGLOBIN 9.7 gm/dL (12.0-15.0)
[2020-01-18 04:56] LABS: ALBUMIN 2.1 g/dL (3.4-5.0); CALCIUM 8.3 mg/dL (8.5-10.1); CREATININE 4.7 mg/dL (0.6-1.0); PHOSPHORUS 7.3 mg/dL (2.5-4.9); POTASSIUM 5.4 mmol/L (3.5-5.1)
--- NOTE | 2020-01-18 07:15 | NUR ---
PT ARRIVED FROM CCU TO ICU AT 0550 ACCOMPANIED BY CCU STAFF. PT SLEEPING, EASILY AROUSABLE TO VERBAL OR TACTILE STIMULI. PT CONTINUALLY MOANING AND CRYING WHEN RN TOUCHED HER PANUS OR BILATERAL LOWER EXTREMETIES. LEVOPHED GTT STARTED PER DIRECTOR OF CHANNEL MARKETING ORDER. THIS AM DR JOHNSON UPDATED ON PT STATUS AT 0639.
--- NOTE | 2020-01-18 07:26 | NUR ---
ASSUME CARE 1900. PT STABLE. A/O X 4. BP RUNS SOFT WITH SBP IN 70s/80s. BUSINESS SERVICES TECH MADE AWARE, 500M6 BOLUS GIVEN AND ALBUMIN X 1 TO HELP WITH BP. SBP STILL IN 70s. PT SLEEPY BUT EASILY AROUSES. PT IS NOT LETHARGIC AND DOES NOT APPEAR SYMPTOMATIC EVEN WITH LOW BP. NO URINE OUTPUT NOTED THROUGH THE SHIFT. BLADDER SCAN SHOWS 191 ML IN BLADDER. PT DENEIS QUICK CATH PLACEMENT. NEPHROLOGY FOLLOWING WITH PT. TRANSFER ORDERS TO ICU GIVEN BY BUSINESS SERVICES TECH FOR PT TO BE STARTED ON PRESSORS. ASSESSMENT CHARTED. WILL CONTINUE TO FOLLOW WITH POC
--- NOTE | 2020-01-18 09:56 | NUR ---
VASCULAR ACCESS CONSULTED FOR CVAD. DISCUSSED LINE WITH SON DEANNE, VERBALIZED UNDERSTANDING. PT'S LABS,MEDS,HISTORY ,CONSENT VERIFIED. RIJ WAS WIDELY PATENT WITH USG. 6FR 25CM TL POWER JACC INSERTED TO 7CM EXTERNAL. GAUZE APPLIED TO SITE FOR BLEEDING. STAT CXR ORDERED.
--- NOTE | 2020-01-18 11:06 | NUR ---
cxr confirmed placement RIJ RELEASED FOR IMMEDIATE USE PER PROTOCOL.
--- NOTE | 2020-01-18 12:30 | NUR ---
PATIENT REMAINS ON LEVOPHED AND DEONNA TO KEEP MAP 60 MMHG OR GREATER. NS BOLUS GIVEN PER ORDER. RIJ TL INSERTED VIA IV TEAM AND AVAILABLE FOR USE. SON UPDATED AT 0915 AND 1130 TODAY. OLU INSERTED WITH USE OF ULTRASOUND BY DR HARDING AT 1210 IN LRA. PATIENT CONTINUES TO MOAN WHEN LEGS ARE TOUCHED. AROUSES AND ORIENTED TO PERSON, PLACE AND SITUATION.
--- NOTE | 2020-01-18 12:47 | NUR ---
PT PLACED ON HOLD FROM P.T. DUE TO DECLINE IN MEDICAL STATUS WITH SUBSEQUENT TX TO ICU. PLEASE RE-ORDER P.T. WHEN PT IS APPROPRIATE TO PARTICIPATE IN THERAPEUTIC ACTIVITIES.
--- NOTE | 2020-01-18 19:15 | NUR ---
PATIENT REMAINS RESPONSIVE AND ORIENTED TO PERSON, PLACE, TIME AND SITUATION. PATIENT STATES THAT SHE DOES NOT WANT CPR IF HER HEART STOPS OR TO BE PLACED ON A VENTILATOR. URINE CATHATER PLACED WITH RETURN OF 225 CC BRI URINE OUTPUT. LEVO AT 27 MCG/MIN WITH MAP OF 60 MMHG. OLU PULLED OUT BY PATIENT, PRESSURE HELD AND GOWN AND LINENS CHANGED. 2CM HEMATOMA NOTED. TRANSPARERNT DRESSING APPLIED. MONITOR SB TO SR WITH 1ST DEGREE AND BBB NOTED. O2 SAT REMAINS IN THE UPPER 90'S. NO RESP DISTRESS NOTED. COUGHING WITH SMALL SIP OF WATER. DR JOHNSON CALLED IN AND INFORMED OF PATIENT'S WISHES FOR CPR AND VENTILATION.
--- NOTE | 2020-01-18 20:00 | NUR ---
DR HARDING NOTIFIED OF PATIENT'S WISHES NOT TO HAVE CPR AND VENTILATION IF HER HEART STOPS, ALSO INFORMED THAT SHE HAD PULLED HER OLU OUT AND WAS A/O X4. SPOKE WITH HER SON AGAIN AT 1730 AND AGAIN AT 1945 AND UPDATED HIM. ALSO CONFIRMED HIS PHONE NUMBER, CONFIRMED EARLIER WITH HIS AUNT, DR JOHNSON ALSON INFORMED OF THE SON'S PHONE NUMBER BEING CORRECT BUT HE RESTRICTS CALLS. INFOMED SON, DEANNE EARLIER THAT PROVIDER WAS ATTEMPTING TO REACH HIM.
[2020-01-18 21:21] LABS: URINE BILIRUBIN NEGATIVE (Negative); URINE BLOOD TRACE (Negative); URINE CLARITY SL CLOUDY; URINE COLOR YELLOW; URINE GLUCOSE-RANDOM* NEGATIVE (Negative); URINE KETONES NEGATIVE (Negative); URINE NITRITE-REFLEX NEGATIVE (Negative); URINE PROTEIN (DIPSTICK) 1+ (Negative); URINE SPECIFIC GRAVITY 1.025 (1.005-1.035); URINE UROBILINOGEN 0.2 E.U./dl (0.2-1.0)
[2020-01-18 21:24] LABS: URINE LEUKOCYTES-REFLEX 1+ (Negative)
[2020-01-18 21:25] LABS: URINE CREATININE-RANDOM* 130.5 mg/dL
[2020-01-18 21:30] LABS: BACTERIA-REFLEX 1-9 Few /HPF (None Seen); CASTS None Seen /LPF (None Seen); CRYSTALS None Seen /LPF (None Seen); SQUAMOUS 0-3 Few /LPF (0-3); URINE RBC 0-2 Rare /HPF (0-2)
[2020-01-19] VITALS (30 sets, daily range): BP systolic 72–125; BP diastolic 35–74
[2020-01-19 06:01] LABS: HEMATOCRIT 30.7 % (37.0-47.0); MCH 32.9 pg (26.0-34.0); MCHC 32.7 g/dL (28.0-37.0); MCV 100.7 fL (80.0-100.0); RBC 3.05 mil/uL (4.20-5.00); RDW 15.8 % (10.5-14.5); WBC 12.4 thou/uL (4.0-11.0)
[2020-01-19 06:11] LABS: ALBUMIN 2.6 g/dL (3.4-5.0); CALCIUM 7.5 mg/dL (8.5-10.1); PHOSPHORUS 7.8 mg/dL (2.5-4.9)
[2020-01-19 15:30] LABS: CREATININE 5.2 mg/dL (0.6-1.0); POTASSIUM 5.7 mmol/L (3.5-5.1)
--- NOTE | 2020-01-19 15:43 | NUR ---
VASCULAR ACCESS NOTE PATIENT HAD A R IJ CENTRAL LINE PLACED ON 01/18/20. TODAY PATIENT HAD PULLED THE LINE OUT FROM 7CM ORIGINALLY TO 14CM EXTERNAL. LINE NEEDED TO BE REPLACED THE PATIENT IS ON PRESSORS. PATIENT PREPPED AND DRAPED UNDER STERILE CONDITIONS. OVER THE WIRE EXCHANGE METHOD USED TO PLACED NEW CENTRAL LINE. NO ISSUES DURING PLACEMENT. PATIENT TOLERATED PROCEDURE WELL. 25CM LINE INSERTED TO 18CM INTERNAL AND 7CM EXTERNAL. ALL LUMENS FLUSH AND DRAW EASILY. CXR SHOWS TIP IN THE DISTAL SVC. LINE RELEASED FOR IMMEDIATE USE TO RN.
--- NOTE | 2020-01-19 19:00 | NUR ---
PATIENT PROGESSING SLOWLY LEVOPHED IS TAPPERED TO 15MCG/MIN FROM 29 THIS AM. DOZING AT INTERVALS BUT EASILY AROUSED, MONITOR SB. LOWER EXTERMITY WOUNDS ARE WEEPING LESS TODAY. URINE OUTPUT ONLY 60 ML FOR THE DAY WITH NO RESPONSE FROM THE LASIX. SERUM POTASSIUM 5.7 FROM 6.0 THIS AM. WILL CONTINUE TO MONITOR PROGRESS.
--- NOTE | 2020-01-19 20:04 | NUR ---
PATIENT GIVEN ALBUTEROL TREATMENT, INSULIN FOLLOWED BY D5W FOR ELEVATED POTASSIUM. PATIENT IS ALERT AND RESPONSIVE, STATES THAT SHE IS THRISTY, GIVEN SWABS OF WATER, NO COUGHING NOTED. PATIENT RESTLESS AND PICKING AT QUICK, LINES POSITIONED OUT OF REACH AND PATIENT ORIENTED TO NEED FOR LINES. LEVOPHED TAPPERED. TAKING SIPS OF THICKENED APPLE JUICE SLOWLY WITH A SPOON WITHOUT COUGHING.
[2020-01-20] VITALS (45 sets, daily range): BP systolic 57–144; BP diastolic 25–108
[2020-01-20 05:02] LABS: HEMATOCRIT 30.7 % (37.0-47.0); MCH 32.6 pg (26.0-34.0); MCHC 32.5 g/dL (28.0-37.0); MCV 100.5 fL (80.0-100.0); RBC 3.05 mil/uL (4.20-5.00); WBC 9.4 thou/uL (4.0-11.0)
[2020-01-20 05:10] LABS: ALBUMIN 2.3 g/dL (3.4-5.0); CALCIUM 7.7 mg/dL (8.5-10.1); CREATININE 5.3 mg/dL (0.6-1.0); PHOSPHORUS 7.6 mg/dL (2.5-4.9); POTASSIUM 5.8 mmol/L (3.5-5.1)
--- NOTE | 2020-01-20 05:12 | NUR ---
ASSESSMENTS CHARTED. MEDS CHARTED GIVEN. PATIENT OPENING EYES TO REQUEST. FOLLOWING SOME COMMANDS. SINUS CRISTINA WITH 1D AND BBB, BP LOW BUT MAP AT 60. AROUND 2300 MAP HAD DECREASED, INCREASED LEVOPHED. AFTER DRESSING CHANGE PATIENT IN SEVERE PAIN, GAVE IV PAIN MED. BP AND PULSE DROPPED, STARTED OXYGEN, INCREASED LEVOPHED. SPOKE WITH Catherine BENNETT,WATER PLUMBER ORDERED DOPAMINE CALL CARDIOLOGY. DR. NGUYỄN SAID LEAVE ON LEVOPHED OK TO START DOPAMINE TO INCREASE PRESSURE AND MAP. ROUND 0130 PATIENT STARTED AFIB IN 130'S PER DR. NGUYỄN STOP DOPAMINE. MAX OUT LEVOPHED. PATIENT MAINTAINING MAP +>65. PATIENT PRODUCING VERY LITTLE URINE, ORDER TO DC MORNING LASIX. FALL PRECAUTIONS IN PLACE DURING SHIFT.
--- NOTE | 2020-01-20 07:52 | EKG ---
[facility] [place] [address] ELECTROCARDIOGRAM REPORT Name: JOYCE MCKEON Room #: 249-P ADM IN M.R.#: [id number] Admission: 01/15/20 Attend Phys: Elliot Lutz MD Discharge: Date of : 40 Report #: [id number] THIS REPORT FOR: cc: CARLOS PINEDO Physician not on staff Anirudh Nash MD [facility] THIS REPORT FOR: //name// [facility] Test Date: 2020-01-20 Test Time: 02:39:10 Pat Name: JOYCE MCKEON Department: Room: 249 P Gender: F Machine Filler Servicer: URIEL : 1940 Requested By: Zachariah Dang Order Number: [id number] MD: Anirudh Nash Measurements Intervals [place] Rate: 131 P: MI: QRS: 58 QRSD: 179 T: -59 QT: 386 QTc: 570 Interpretive Statements Atrial fibrillation Left bundle branch block Compared to ECG 01/16/2020 08:26:14 Sinus rhythm no longer present Electronically Signed On 01-20-2020 7:51:31 CDT by Anirudh Nash [email or web address] <ELECTRONICALLY SIGNED> By: Anirudh Nash MD, FAC 01/20/20 0751 0239 0239 Anirudh Nash MD, [facility] /EPI
--- NOTE | 2020-01-20 08:53 | NUR ---
PATIENT TRANSFERRED TO ICU DUE TO A CHANGE IN MEDICAL STATUS. WILL NEED NEW OT ORDERS ONCE MEDICALLY APPROPRIATE.
--- NOTE | 2020-01-20 13:46 | NUR ---
ASSUMED CARE OF PT AT 0700. PT AWAKE, AND ABLE TO RESPOND TO QUESTIONS BY SAYING YES OR NO. PT BP LOW, ON LEVOPHED DR'S AWARE. OTHER VSS. QUICK IN PLACE VERY LITTLE URINE. PT REFUSED ORAL MEDICATIONS AND MEALS. PT MOANS IN PAIN WHEN BEING TOUCHED. SPOKE WITH PT RADAMES ALICEA TO GIVE UPDATE ON CARE. PT NOT PROGRESSING TOWRADS POC GOALS AT THIS TIME.
--- NOTE | 2020-01-20 16:07 | NUR ---
discussed during los, slow improvement. will cont following as needed for dc needs. had [facility] in the past and been to [facility] in past for rehab. will cont following as needed for dc needs. unable to reach son.
[2020-01-21] VITALS (17 sets, daily range): BP systolic 66–96; BP diastolic 33–67
--- NOTE | 2020-01-21 04:39 | NUR ---
Assumed care 1900. pt alert to self, awakens to verbal and tactile stimuli. pt looks lethergic and drowsy. No sign of apparent pain shown. Pt. BPS was running low. Levo maxed at 30 mcg/min. No significant improvement noted on the blood pressure. Pt had been bolused with 500 MLS during the day with minimal improvement in blood pressure. Nofitied MULTI OPERATION MACHINE OPERATOR Vianca,about BP and if bolus were necessary since the patient is not making urine and also has an EF of 20%. MULTI OPERATION MACHINE OPERATOR notified son, Ramirez, who was agreeable to " comfort measures". At about 2145, new order for NS bolus 500 ml/hr were initiated by Dr. Lutz. MULTI OPERATION MACHINE OPERATOR notified to clarify the orders and were both agreeable to 1 time 500 ML bolus and initiate albumin. Somewhat improvement noted on BP but no SBP >75 noted. Pt comfortable, so sign of distress. Wound care completed. Turns as tolerated. SR , with BBB, O2 SATs stable on room. No order concerns. Pt does not seem to be progressing towards goal. Will continue to follow POC and provide comfort.
[2020-01-21 05:39] LABS: HEMOGLOBIN 9.8 gm/dL (12.0-15.0)
[2020-01-21 05:42] LABS: HEMATOCRIT 30.4 % (37.0-47.0); MCH 32.4 pg (26.0-34.0); MCHC 32.3 g/dL (28.0-37.0); MCV 100.2 fL (80.0-100.0); RBC 3.03 mil/uL (4.20-5.00)
[2020-01-21 05:52] LABS: ALBUMIN 2.5 g/dL (3.4-5.0); CALCIUM 7.4 mg/dL (8.5-10.1); CREATININE 5.3 mg/dL (0.6-1.0); PHOSPHORUS 8.1 mg/dL (2.5-4.9)
[2020-01-21 06:19] LABS: POTASSIUM 5.7 mmol/L (3.5-5.1)
--- NOTE | 2020-01-21 14:02 | NUR ---
SW reviewed chart and spoke with attending physician. Pt remains in ICU. Palliative care physician consulted to discuss plan of care and treatment goals with family. SW is following to assist as needed with discharge planning.
--- NOTE | 2020-01-21 18:32 | NUR ---
ASSUMED CARE AT 0700, PT ON MAXIMUM DOSE OF LEVO, MAP CONTINUES TO BE BELOW 60, PHYSICIANS AWARE, NO NEW ORDERS GIVEN. FAMILY WAS CONTACTED BY MYSELF AND DR HARDING, FAMILY DOES NOT WANT TO CONTINUE WITH AGGRESSIVE TREATMENT. FAMILY WAS INVITED TO HOSPITAL TO GIVE RESPECTS TO PT, THEN LEVO WAS ORDERED TO BE TURNED OFF, ALONG WITH IVP MORPHINE STARTED. COMFORT CARE ORDERED, ALONG WITH MED/SURG TRANSFER. PT NOT PROGRESSING TOWARDS POC. WILL CONTINUE TO MONITOR. NO BM. UOP NOT ADEQUATE, PROVIDER AWARE.
--- NOTE | 2020-01-21 22:00 | NUR ---
PT ON COMFORT CARE. COMFORT CARE ORDERED BY DR. HARDING TODAY. PT GIVEN MORPHINE BEFORE TRANSFER TO [address] [place] [address]. PT TRANSFERED TO ROOM 443. REPORT GIVEN TO RFIEDA KLINE. PT'S SON DEANNE INFORMED ABOUT PT BEING TRANSFERED TO 443 AND THE EXTENSION FOR 4SOUTH GIVEN TO PT SON.PT TRANSFERED VIA BED BY SUPERVISING LIBRARIAN CARRIE AND CCU PAPER CARRIER ALONG WITH PT BELONGINGS AND CHART.
[2020-01-22 03:36] VITALS: BP 72/52
--- NOTE | 2020-01-22 03:53 | NUR ---
PT ARRIVED TO THE UNIT AT AROUND 2215HRS. REPORT RECEIVED FROM HARRIETT MALAVE. PT IS NON VERBAL, EYES CLOSED. SHE REPONDS TO TOUCH AND PURPOSEFUL NOISE BY SHUTTING MOUTH OR MAKING SOME EYE MOVEMENTS. SKIN IS WARM TO TOUCH TO BUE AND BLE. QUICK TO D/D WITH NO OUTPUT. LOW BP.BREATHING IS NON LABORED AND SHALLOW.UPDATED BROTHER DEANNE([phone]), WHEN HE CALLED THE UNIT. WILL CONTINUE WITH COMFORT CARE.
[2020-01-22 08:15] VITALS: BP 48/32
--- NOTE | 2020-01-22 14:45 | NUR ---
Assumed care of pt at 0700. Pt comfort care. BP low. Talked to pt's son over the phone. Pt responds slighty to stimuli. Frequent rounding. Will continue to monitor.
--- NOTE | 2020-01-23 12:09 | HC ---
[facility] [place] [address] CONSULTATION Name: JOYCE MCKEON Room #: 443-P [facility] IN M.R.#: [id number] Admission: 01/15/20 Attend Phys: Elliot Lutz MD Discharge: 01/22/20 Date of : 40 Report #: [id number] THIS REPORT FOR: cc: CARLOS PINEDO Physician not on staff Nick Dumas MD ~ CC: CARLOS Lutz Physician staff DATE OF SERVICE: 01/19/2020 REASON FOR CONSULTATION: Bilateral lower extremity pain. HISTORY OF PRESENT ILLNESS: The patient is a 79-year-old female who Dr. Lutz asked me to see to evaluate her bilateral lower extremity pain. He was concerned that there might be a compartment syndrome. She has been in the ICU on pressors and has multiple medical issues. There is no trauma to her leg. She does have cellulitis and wounds on bilateral lower extremities, which are being attended to by Wound Care. Past medical history, medications, surgical history, allergies have all been reviewed and are on the chart. PHYSICAL EXAMINATION: GENERAL: This is a frail-appearing female who is resting comfortably in the bed. She does awaken to voice and is cooperative with exam. She does state that her lower extremities are painful to her. EXTREMITIES: Examination of bilateral lower extremity show to have Kerlix wrappings around her bilateral calf and tibia. These are not taken down. Her feet are exposed. She has no edema in her feet or toes. She has sensation to light touch per her report. She does not have a palpable dorsalis pedis pulse, but a normal-appearing skin and brisk capillary refill. She has minimal pain with passive stretch and range of motion of the ankle. Her compartments are soft to touch. She does report pain when squeezing her legs, but I suspect this is secondary to her underlying wounds and cellulitis. LABORATORY DATA: Showed her to have a white count of 12.4, hemoglobin of 10. ASSESSMENT: Bilateral lower extremity wounds and cellulitis, no signs of compartment syndrome. PLAN: I highly doubt that this is any sign of compartment syndrome. I think her pain is likely secondary to the wounds on her legs and the cellulitis given she has had no trauma to her lower extremities. If she becomes medically more stable, may be helpful to get an MRI of her lower extremities to evaluate for [address] [address] CONSULTATION Name: JOYCE MCKEON Room #: 443-P [facility] IN M.R.#: [id number] Admission: 01/15/20 Attend Phys: Elliot Lutz MD Discharge: 01/22/20 Date of : 40 Report #: [id number] any myositis, but at this point I do not see any need for surgical intervention. She may continue with wound care per the Wound Care team and supportive care. We will sign off for the time being; however, please call if there are additional questions or concerns from an orthopedic standpoint. Thank you for allowing us to participate in the care of the patient. <ELECTRONICALLY SIGNED> By: Nick Dumas MD 01/23/20 1209 [id number] Nick Dumas MD /nt
--- NOTE | 2020-02-03 07:36 | HC ---
[facility] [place] [address] CONSULTATION Name: JOYCE MCKEON Room #: 443-P [facility] IN M.R.#: [id number] Admission: 01/15/20 Attend Phys: Elliot Lutz MD Discharge: 01/22/20 Date of : 40 Report #: [id number] THIS REPORT FOR: cc: CARLOS PINEDO Physician not on staff Randal Weinberg MD ~ CC: CARLOS Lutz Physician staff DATE OF SERVICE: 01/15/2020 NEPHROLOGY CONSULTATION REASON FOR CONSULTATION: Elevated creatinine level. HISTORY OF PRESENT ILLNESS: This is a 79-year-old female whom we have previously seen in consultation. Those evaluations occurred both in January and February of 2019. She had longstanding diabetes. She also had problems with chronic lower extremity edema. At that time, she had moderate cardiomyopathy with an ejection fraction of 40% at that time. During those 2 hospitalizations, she ran a creatinine level between 2.0 and 3.6. She had mild proteinuria at about 300 mg. She also carried a history at that time of longstanding diabetes and hypertension. We have not seen her since that time. I have no interim labs. The patient is not able to give me any history at this time. She is moderately obtunded. Her admission note says that she presented to [facility] earlier today and was transferred here. Labs from [place] showed a creatinine level up to 4.1. Her potassium was 4.4 at that time. She had a leukocytosis with a white count of 11.3. She presented mainly with lower extremity wounds. I received a hand cementer report that she had been dealing with these wounds on her lower extremities for some time. They had worsened, so she went to [place]. I did not undress these wounds fully, but I will describe those below. Interim history is also that her cardiomyopathy has worsened. Over a year ago, she had an ejection fraction of 40%. A recent echocardiogram apparently done at [place] showed an ejection fraction down to 20%. PAST MEDICAL HISTORY: Diabetes, hypertension, chronic diabetic nephropathy. Cardiomyopathy as noted above. She has had the chronic lower extremity edema. She has also had some pulmonary hypertension. MEDICATIONS: Apparently include torsemide 40 mg daily, calcium, famotidine 20 mg daily, insulin, levothyroxine 0.125 mg daily. She also previously was being on carvedilol and hydralazine, but I am uncertain if she is getting it now. [facility] [address] [place] [address] CONSULTATION Name: JOYCE MCKEON Room #: 443-P [facility] IN M.R.#: [id number] Admission: 01/15/20 Attend Phys: Elliot Lutz MD Discharge: 01/22/20 Date of : 40 Report #: [id number] ALLERGIES: Based on her chart are listed to AMOXICILLIN. FAMILY HISTORY: Unavailable. SOCIAL HISTORY: The patient is able to tell me she lives in [place]. She is listed as being single and retired. REVIEW OF SYSTEMS: She is not able to really relating to me. PHYSICAL EXAMINATION: GENERAL: Elderly, pale, feeble-appearing female. She is somewhat obtunded at this time. She is able to again tell me she lives in [place] and she can tell me that her legs hurt, not much else available. VITAL SIGNS: Blood pressure on arrival 119/53, heart rate 106, temperature 97.5, oxygen saturation 95%, respiratory rate 22. HEENT: Shows pupils are equal and reactive. Sclerae nonicteric. Oral mucosa is dry. NECK: Veins are not distended. CHEST: Fairly clear bilaterally with very shallow respirations. HEART: Has a regular rate and rhythm. ABDOMEN: Not distended. Bowel sounds are diminished. I cannot palpate organomegaly or masses. EXTREMITIES: Show both legs are wrapped below the knee. As I lift up a bit of the fresh dressing, there is a dramatic erythema posteriorly on the right and a large ulcerated area anteriorly on the left. In talking with the nurse who did the dressings, there is also very ulcerated area on the right pretibial area. Her feet show 1+ edema. No ischemic changes to her feet. LABORATORY DATA: None available here. Others listed as above per the [facility] labs. ASSESSMENT: 1. Acute kidney injury. Creatinine level is up significantly over what it was a year ago. She has some underlying diabetic nephropathy. At this point, she looks more dry on exam, then wet. She has the cellulitis, which may be contributing. I am also concerned that she has some cardiorenal syndrome. Her ejection fraction is half of what it was a year ago and certainly that is a compromising factor. Blood pressures recorded as being okay. We will need to keep an eye on that. I will get a Roberts placed. We will check some urine studies as well as a fractional excretion of sodium. If her blood pressure drops at all, we will give her a bit of judicious fluid replacement. 2. Chronic kidney disease with longstanding diabetic nephropathy. 3. Cardiomyopathy, much worse than a year ago with the ejection fraction changes noted above. She certainly is at risk for a component of cardiorenal syndrome. 4. Cellulitis of both lower extremities. Her white count was mildly elevated [facility] [address] [place] [address] CONSULTATION Name: JOYCE MCKEON Room #: 443-P [facility] IN M.R.#: [id number] Admission: 01/15/20 Attend Phys: Elliot Lutz MD Discharge: 01/22/20 Date of : 40 Report #: [id number] at [place]. We need blood cultures. I will order those. She has been ordered to get vancomycin and I think she has already got some sort of blood cultures, may be of little value, but we need to check anyway. We will have to watch the dosing of the vancomycin with his severely compromised renal function. 5. Severe cardiomyopathy as noted above. 6. Recheck labs in the morning. 7. We will follow along closely in the care of this patient. <ELECTRONICALLY SIGNED> By: Randal Weinberg MD 02/03/20 [id number] [id number] Randal Weinberg MD /nt
== END 2020-01-22 19:00 | DRG 871 ==
LOC: 2N 09:40 → ICU 01-18 05:47 → 4S 01-21 22:09
PROVIDERS: Hospitalist; Internal Medicine; Internal Medicine Gastroenterology; Internal Medicine Nephrology; Nurse Practitioner; Specialist; ADMIT Internal Medicine; ATTEND Internal Medicine
PROC: 02HV33Z Insertion of Infusion Device into Superior Vena Cava, Percutaneous Approach (ICD-10-PCS; principal; 2020-01-18)
PROC: 03HY32Z Insertion of Monitoring Device into Upper Artery, Percutaneous Approach (ICD-10-PCS; principal; 2020-01-18)
DX: A41.9 Sepsis, unspecified organism (principal); I50.23 Acute on chronic systolic (congestive) heart failure; E43 Unspecified severe protein-calorie malnutrition; R65.21 Severe sepsis with septic shock; N17.9 Acute kidney failure, unspecified; I13.0 Hypertensive heart and chronic kidney disease with heart failure and stage 1 through stage 4 chronic kidney disease, or unspecified chronic kidney disease; L03.116 Cellulitis of left lower limb; L03.115 Cellulitis of right lower limb; I42.9 Cardiomyopathy, unspecified; L97.819 Non-pressure chronic ulcer of other part of right lower leg with unspecified severity; K92.2 Gastrointestinal hemorrhage, unspecified; G93.40 Encephalopathy, unspecified; E11.22 Type 2 diabetes mellitus with diabetic chronic kidney disease; N18.9 Chronic kidney disease, unspecified; I48.91 Unspecified atrial fibrillation; I27.20 Pulmonary hypertension, unspecified; E11.319 Type 2 diabetes mellitus with unspecified diabetic retinopathy without macular edema; E78.5 Hyperlipidemia, unspecified; E03.9 Hypothyroidism, unspecified; I25.10 Atherosclerotic heart disease of native coronary artery without angina pectoris; I87.2 Venous insufficiency (chronic) (peripheral); E11.51 Type 2 diabetes mellitus with diabetic peripheral angiopathy without gangrene; L30.4 Erythema intertrigo; G47.00 Insomnia, unspecified; E87.5 Hyperkalemia; D64.9 Anemia, unspecified; Z51.5 Encounter for palliative care; I95.9 Hypotension, unspecified; D69.6 Thrombocytopenia, unspecified; E11.42 Type 2 diabetes mellitus with diabetic polyneuropathy; Z20.828 Contact with and (suspected) exposure to other viral communicable diseases; Z79.01 Long term (current) use of anticoagulants; Z88.1 Allergy status to other antibiotic agents; Z98.49 Cataract extraction status, unspecified eye; I25.2 Old myocardial infarction; Z87.891 Personal history of nicotine dependence; Z91.041 Radiographic dye allergy status; Z91.012 Allergy to eggs; Z79.82 Long term (current) use of aspirin; Z79.899 Other long term (current) drug therapy; Z83.3 Family history of diabetes mellitus; Z82.49 Family history of ischemic heart disease and other diseases of the circulatory system
CPT/HCPCS: 10078; 10081; 10102